=== PATIENT | female | born 1980 | race Caucasian/White ===

== ENCOUNTER 2020-12-06 10:05 | Outpatient (REF) | payer OTHER, SELFPAY ==
[2020-12-06 13:57] LABS: Hematocrit 43.7 % (37-47); Hemoglobin 14.9 g/dl (12.0-16.0); Mean Corpuscular HGB Conc 34.1 g/dl (31.0-35.0); Mean Corpuscular Hemoglobin 32.7 pg (27.0-33.0); Mean Corpuscular Volume 95.8 fL (80-98); Mean Platelet Volume 9.3 fL (9.4-12.3); Platelet Count 292 X10*3/uL (160-400); Red Blood Count 4.56 X10*6/uL (4.20-5.50); Red Cell Distribution Width 12.2 % (11.0-16.0); White Blood Count 5.9 X10*3/uL (4.8-10.8)
[2020-12-06 14:03] LABS: Glucose Urine UA NEG (NEG); Leukocyte Esterase Urine 1+ (NEG); Nitrite Urine NEG (NEG); PH 7.5 (5.0-8.0); Specific Gravity - Urine 1.015 (1.005-1.025); Urine Blood 1+ (NEG); Urine Ketones NEG (NEG); Urine Protein NEG (NEG-TRACE)
[2020-12-06 14:04] LABS: Appearance Urine CLOUDY; Color Urine YELLOW
[2020-12-06 14:11] LABS: Amorphous Sediment Urine 2+ /LPF; Bacteria Urine 1+ /LPF; RBC Urine 0 /HPF (0); Squamous Epithelial Cell Urine 1+ /LPF
[2020-12-06 14:48] LABS: Alanine Aminotransferase 14 U/L (0-31); Albumin Level 4.2 g/dL (3.5-5.0); Alkaline Phosphatase 56 U/L (39-117); Anion Gap 10 (12-20); Aspartate Amino Transferase 17 U/L (5-31); Bilirubin Direct 0.6 mg/dL (0.0-0.5); Bilirubin Total 1.7 mg/dL (0.0-1.0); Blood Urea Nitrogen 17 mg/dL (9-16); Calcium 8.9 mg/dL (8.4-10.2); Carbon Dioxide 29 mmol/L (22-29); Chloride 105 mmol/L (96-108); Cholesterol 187 mg/dL; Estimated Glomerular Filt Rate > 60; Glucose Random 79 mg/dL (60-115); HDL Cholesterol 73 mg/dL; LDL Cholesterol Calculated 94 mg/dl; Potassium 4.1 mmol/L (3.3-5.1); Sodium 140 mmol/L (135-145); Total Protein 7.1 g/dL (6.5-8.0); Triglycerides 103 mg/dL
[2020-12-06 15:02] LABS: Thyroid Stimulating Hormone 0.79 uIU/mL (0.32-4.0)
== END 2020-12-06 10:06 | disposition home or self-care (01) ==
LOC: HO.WFDLDS 10:05
PROVIDERS: Visit Provider Internal Medicine
DX: I10 Essential (primary) hypertension (principal)
CPT/HCPCS: 36415; 80048; 80061; 80076; 81001; 81003; 84443; 85027

== ENCOUNTER 2020-12-27 08:27 | Outpatient (REF) | payer OTHER, SELFPAY ==
[2020-12-27 09:47] LABS: Lactate Dehydrogenase 146 U/L (122-220)
[2020-12-27 10:53] LABS: Glucose Urine UA NEG (NEG); Leukocyte Esterase Urine NEG (NEG); Nitrite Urine NEG (NEG); Urine Blood 3+ (NEG); Urine Ketones NEG (NEG); Urine Protein TRACE MG/DL (NEG-TRACE)
[2020-12-27 10:55] LABS: Appearance Urine CLOUDY; Color Urine YELLOW
[2020-12-27 11:42] LABS: Amorphous Sediment Urine 1+ /LPF; Bacteria Urine 1+ /LPF; RBC Urine TNTC /HPF (0); Squamous Epithelial Cell Urine 1+ /LPF
[2020-12-29 14:01] LABS: Haptoglobin 45 mg/dL (43-212)
== END 2020-12-27 08:28 | disposition home or self-care (01) ==
LOC: HO.LAB 08:27
PROVIDERS: Internal Medicine; PCP Family Medicine; Visit Provider Family Medicine
DX: R17 Unspecified jaundice (principal)
CPT/HCPCS: 36415; 81001; 83010; 83615

== ENCOUNTER 2021-08-06 06:16 | Outpatient (REF) | payer OTHER, SELFPAY ==
[2021-08-06 06:24] LABS: MANUAL DIFF FLAG NO
[2021-08-06 07:28] LABS: Basophils Absolute Auto 0.1 X10*3/uL (0.0-0.2); Eosinophils Absolute Auto 0.5 X10*3/uL (0.0-0.4); Eosinophils Percent Auto 6.2 % (0-4); Hematocrit 43.3 % (37.0-47.0); Imm Gran Abs Auto 0.01 X10*3/uL (0.00-0.03); Imm Gran Pct Auto 0.1 % (0.0-0.4); Lymphocytes Absolute Auto 1.7 X10*3/uL (1.2-4.9); Lymphocytes Percent Auto 23.5 % (20-40); Mean Corpuscular HGB Conc 34.6 g/dl (31.0-35.0); Mean Corpuscular Hemoglobin 32.1 pg (27.0-33.0); Mean Corpuscular Volume 92.7 fL (80.0-98.0); Mean Platelet Volume 9.3 fL (9.4-12.3); Monocytes Absolute Auto 0.6 X10*3/uL (0.1-1.2); Monocytes Percent Auto 7.9 % (2-11); Neutrophils Absolute Auto 4.4 x10*3/uL (2.0-8.3); Neutrophils Percent Auto 61.3 % (45-73); Platelet Count 235 X10*3/uL (160-400); Red Blood Count 4.67 X10*6/uL (4.20-5.50); White Blood Count 7.2 X10*3/uL (4.8-10.8)
[2021-08-06 07:52] LABS: Alanine Aminotransferase 14 U/L (0-31); Albumin Level 4.1 g/dL (3.5-5.0); Alkaline Phosphatase 48 U/L (39-117); Anion Gap 10 (12-20); Aspartate Amino Transferase 16 U/L (5-31); Bilirubin Direct 0.5 mg/dL (0.0-0.5); Bilirubin Total 1.3 mg/dL (0.0-1.0); Blood Urea Nitrogen 15 mg/dL (9-16); Calcium 8.4 mg/dL (8.4-10.2); Carbon Dioxide 25 mmol/L (22-29); Chloride 105 mmol/L (96-108); Estimated Glomerular Filt Rate > 60; Glucose Fasting 84 mg/dL (60-99); Sodium 136 mmol/L (135-145)
[2021-08-06 08:27] LABS: Microalbum/Creatinine Ratio Ur 17.6 ug/mg cr
[2021-08-06 08:39] LABS: Appearance Urine CLEAR; Color Urine YELLOW; Glucose Urine UA 250 MG/DL (NEG); Leukocyte Esterase Urine 1+ (NEG); Nitrite Urine NEG (NEG); PH 7.5 (5.0-8.0); Urine Blood 2+ (NEG); Urine Ketones NEG (NEG); Urine Protein NEG (NEG-TRACE)
[2021-08-06 09:04] LABS: WBC Urine 0-2 /HPF (0-4)
[2021-08-06 09:07] LABS: Bacteria Urine TRACE /LPF; Squamous Epithelial Cell Urine TRACE /LPF
== END 2021-08-06 06:17 | disposition home or self-care (01) ==
LOC: HO.LAB 06:16
PROVIDERS: PCP Family Medicine; Visit Provider Family Medicine
DX: Z00.00 Encounter for general adult medical examination without abnormal findings (principal); R17 Unspecified jaundice; I10 Essential (primary) hypertension
CPT/HCPCS: 36415; 80053; 81001; 81003; 82043; 82248; 85025

== ENCOUNTER 2021-10-22 11:08 | Outpatient (REF) | payer OTHER, SELFPAY ==
--- NOTE | ~2021-10-22 | MM_ITS ---
EXAMINATION: MM SCREENING DIGITAL BREAST TOMOSYNTHESIS, BILATERAL CLINICAL INFORMATION: Screening. Asymptomatic. Age 41. No prior breast imaging. No known family history breast cancer. The lifetime risk of breast cancer based on the Tyrer-Cuzick Model is 9%. COMPARISON: None (current study represents initial baseline exam). TECHNIQUE: Digital breast tomosynthesis is performed in both the craniocaudal and mediolateral oblique views along with computer-aided detection (CAD). Synthesized 2D images are generated from the tomosynthesis. FINDINGS: There are scattered areas of fibroglandular density (ACR BI-RADS breast composition Category b). There are no significant masses, abnormal calcifications, or other abnormalities. The axilla and skin contours are unremarkable. MM/MM tomosynthesis screening BI IMPRESSION: No mammographic evidence of malignancy. ASSESSMENT: BI-RADS 1: Negative RECOMMENDATION: Routine annual mammography screening. This patient's information was entered into a reminder system with a target due date for their next mammogram.
== END 2021-10-22 11:09 | disposition home or self-care (01) ==
LOC: HO.MAMMO 11:08
PROVIDERS: Visit Provider Family Medicine
DX: Z12.31 Encounter for screening mammogram for malignant neoplasm of breast (principal)
CPT/HCPCS: 77063; 77067

== ENCOUNTER 2022-09-03 09:51 | Outpatient (REF) | payer OTHER, SELFPAY ==
[2022-09-03 09:58] LABS: MANUAL DIFF FLAG NO
[2022-09-03 10:51] LABS: Basophils Absolute Auto 0.1 X10*3/uL (0.0-0.2); Basophils Percent Auto 1.5 % (0-2); Eosinophils Absolute Auto 0.3 X10*3/uL (0.0-0.4); Eosinophils Percent Auto 5.5 % (0-4); Hematocrit 43.1 % (37.0-47.0); Hemoglobin 14.6 g/dl (12.0-16.0); Imm Gran Abs Auto 0.01 X10*3/uL (0.00-0.03); Imm Gran Pct Auto 0.2 % (0.0-0.4); Lymphocytes Absolute Auto 1.8 X10*3/uL (1.2-4.9); Lymphocytes Percent Auto 31.1 % (20-40); Mean Corpuscular HGB Conc 33.9 g/dl (31.0-35.0); Mean Corpuscular Hemoglobin 31.8 pg (27.0-33.0); Mean Corpuscular Volume 93.9 fL (80.0-98.0); Mean Platelet Volume 9.3 fL (9.4-12.3); Monocytes Absolute Auto 0.5 X10*3/uL (0.1-1.2); Monocytes Percent Auto 8.2 % (2-11); Neutrophils Absolute Auto 3.1 x10*3/uL (2.0-8.3); Neutrophils Percent Auto 53.5 % (45-73); Platelet Count 275 X10*3/uL (160-400); Red Blood Count 4.59 X10*6/uL (4.20-5.50); Red Cell Distribution Width 11.9 % (11.0-16.0); White Blood Count 5.9 X10*3/uL (4.8-10.8)
[2022-09-03 11:15] LABS: Alanine Aminotransferase 14 U/L (0-31); Alkaline Phosphatase 53 U/L (39-117); Anion Gap 11 (12-20); Aspartate Amino Transferase 17 U/L (5-31); Bilirubin Total 1.7 mg/dL (0.0-1.0); Blood Urea Nitrogen 14 mg/dL (9-16); Calcium 8.3 mg/dL (8.4-10.2); Carbon Dioxide 27 mmol/L (22-29); Chloride 105 mmol/L (96-108); Cholesterol 193 mg/dL; Estimated Glomerular Filt Rate > 60; Glucose Fasting 85 mg/dL (60-99); HDL Cholesterol 67 mg/dL; LDL Cholesterol Calculated 114 mg/dl; Sodium 139 mmol/L (135-145); Total Protein 6.8 g/dL (6.5-8.0); Triglycerides 62 mg/dL
[2022-09-03 11:26] LABS: TSH reflex Free T4 0.87 uIU/mL (0.32-4.0)
[2022-09-03 11:42] LABS: Appearance Urine Turbid; Color Urine Yellow; Glucose Urine UA Negative (Negative); Leukocyte Esterase Urine Large (3+) (Negative); Nitrite Urine Negative (Negative); PH 8.5 (5.0-9.0); Specific Gravity - Urine 1.015 (1.005-1.025); UMIC TRIGGER UA YES; Urine Blood Negative (Negative); Urine Ketones Negative (Negative); Urine Protein Negative (Neg-Trace)
[2022-09-03 11:45] LABS: Bacteria Urine 2+ (None Seen); Hyaline Casts Urine 0-2 /LPF (0-2); RBC Urine 0-2 /HPF (0-2); Squamous Epithelial Cell Urine >20 /HPF (0-2)
[2022-09-03 12:08] LABS: Creatinine Urine 106.24 mg/dL; Microalbumin Urine < 5.0 mg/L
== END 2022-09-03 09:52 | disposition home or self-care (01) ==
LOC: HO.LAB 09:51
PROVIDERS: PCP Family Medicine; Visit Provider Family Medicine
DX: Z00.00 Encounter for general adult medical examination without abnormal findings (principal); I10 Essential (primary) hypertension
CPT/HCPCS: 36415; 80053; 80061; 81001; 82043; 84443; 85025

== ENCOUNTER 2022-09-09 11:52 | Outpatient (REF) | payer OTHER, SELFPAY ==
[2022-09-09 14:31] LABS: Appearance Urine Cloudy; Color Urine Yellow; Glucose Urine UA Negative (Negative); Leukocyte Esterase Urine Large (3+) (Negative); Nitrite Urine Negative (Negative); UMIC TRIGGER UA YES; Urine Blood Trace (Negative); Urine Ketones Negative (Negative); Urine Protein Negative (Neg-Trace)
[2022-09-09 15:04] LABS: Bacteria Urine 2+ (None Seen); Hyaline Casts Urine 0-2 /LPF (0-2); WBC Urine 0-5 /HPF (0-5)
== END 2022-09-09 11:53 | disposition home or self-care (01) ==
LOC: HO.LAB 11:52
PROVIDERS: Visit Provider Family Medicine
DX: R82.71 Bacteriuria (principal)
CPT/HCPCS: 81001; 87086

== ENCOUNTER 2022-10-23 11:54 | Outpatient (REF) | payer OTHER, SELFPAY ==
--- NOTE | ~2022-10-23 | MM_ITS ---
EXAMINATION: MM SCREENING DIGITAL BREAST TOMOSYNTHESIS, BILATERAL CLINICAL INFORMATION: Screening. Asymptomatic. The lifetime risk of breast cancer based on the Tyrer-Cuzick Model is 8.9%. COMPARISON: Mammography: October 22, 2021 TECHNIQUE: Digital breast tomosynthesis is performed in both the craniocaudal and mediolateral oblique views along with computer-aided detection (CAD). Synthesized 2D images are generated from the tomosynthesis. FINDINGS: The breasts are heterogeneously dense, which may obscure small masses (ACR BI-RADS breast composition Category c). There are no significant masses, abnormal calcifications, or other abnormalities. MM/MM tomosynthesis screening BI IMPRESSION: No significant changes from prior exam. ASSESSMENT: BI-RADS 1: Negative RECOMMENDATION: Routine annual mammography screening. This patient's information was entered into a reminder system with a target due date for their next mammogram.
== END 2022-10-23 11:55 | disposition home or self-care (01) ==
LOC: HO.MAMMO 11:54
PROVIDERS: PCP Family Medicine; Visit Provider Family Medicine
DX: Z12.31 Encounter for screening mammogram for malignant neoplasm of breast (principal)
CPT/HCPCS: 77063; 77067

== ENCOUNTER 2023-01-07 16:10 | Outpatient (AMB) | payer OTHER, SELFPAY ==
--- NOTE | 2023-01-07 16:24 | MHC.PC.OV ---
Vital Signs 01/07/23 16:29 Height 5 ft 3 in Weight 123 lb 4 oz BMI 21.8 BP 144/78 H Blood Pressure Location Lt brachial Position Sitting Pulse 75 Pulse Source Pulse Oximeter Pulse Oximetry (%) 100 Oxygen Delivery Method Room Air Intake Visit Reasons: Follow-up hypertension Intake Note: Patient is here for hypertension today. Patient would like rash on hands to be looked at today, getting pretty bad. Allergies cat dander Allergy (Verified 01/07/23 16:31) runny nose, itchy eyes dog dander Allergy (Verified 01/07/23 16:31) runny nose, itchy eyes Seasonal Allergies Allergy (Verified 01/07/23 16:31) runny nose, sneezing, itchy eye Tobacco use date assessed: 09/09/22 Dental Screening Dental Screen Date: 01/07/23 Did you have a dental visit in the last 12 months?: Yes Did you have a dental problem in the last 6 months where you did not have access to dental care?: No Was dental information given to patient?: No HPI Follow-up hypertension HPI Details 42 y/o female presents to f/u hypertension. Blood pressure today is 144/78. She is on amlodipine 2.5mg daily. Pt has complaints of a rash today. She reports the eczema on her hands have been flaring up. She has been using betamethasone ointment which does help. [facility] Medical History Essential (primary) hypertension Surgical History S/P LASIK surgery of both eyes Family History (Updated 05/23/21 @ 10:03 by REZA Sainz) Father No problems noted. Mother No problems noted. Social History Household Members: Spouse and Children Housing: House Alcohol intake: never Patient Tobacco Use Status: Never used Tobacco e-Cigarette/Vaping Use: Never Used Second Hand Smoke Exposure: No service: No Current occupational status: employed Current occupational exposures/hazards: No Cognitive needs: No Hearing needs: No Vision needs: No Questionnaire Thrive Questionnaire Date Thrive assessed: 03/20/23 ARMOND-7 AMB Questionnaire ARMOND-7 Date ARMOND - 7 assessed: 09/09/22 Source: Developed by Drs. Jean Carlos Sotelo, Toya Giron, Javon Rubio and colleagues, with an educational harris from [employer]. Review of Systems Const Denies chills, Denies fatigue, Denies fever(s), Denies headache(s) and Denies weakness ENT Denies dizziness and Denies headache(s) Card Denies chest pain, Denies lightheadedness, Denies dyspnea and Denies other (Palpitations) Resp Denies cough, Denies dyspnea, Denies wheezing and Denies other ( shortness of breath) Musc Denies numbness and Denies tingling Neuro Denies dizziness, Denies headache(s), Denies numbness, Denies tingling, Denies paresthesias and Denies weakness Psych Denies anxiety and Denies depression Endo Denies fatigue Aller/Immun Denies wheezing Physical exam (Primary Care) Vital Signs: Last Vital Signs Pulse 75 01/07/23 16:29 BP 144/78 H 01/07/23 16:29 Pulse Ox 100 01/07/23 16:29 Oxygen Delivery Method Room Air 01/07/23 16:29 BMI result Body Mass Index 21.8 Tobacco/Smoking Status: Tobacco use Status Tobacco use date assessed 09/09/22 01/07/23 16:29 Patient Tobacco Use Status Never used Tobacco 01/07/23 16:29 e-Cigarette/Vaping Use Never Used 01/07/23 16:29 Thrive Assessment: Date of Thrive Assessment Date Thrive assessed 09/09/22 01/07/23 16:29 Const General: no acute distress and well developed Nutritional Appearance: well nourished Orientation/consciousness: patient oriented x3 [facility] Head: Yes normocephalic and Yes atraumatic Eyes General: appearance normal, both eyes and all related structures Pupils: Equal, round and reactive pupils present EOM: EOMs intact bilaterally Resp Effort & Inspection: normal respiratory effort Auscultation: clear to auscultation bilaterally Cardio Rate: regular rate Rhythm: regular rhythm Heart sounds: S1 normal heart sound present, S2 normal heart sound present, no gallops, no murmurs and no rubs Neuro General: patient oriented x3 and gait normal Cranial nerves: Yes Equal, round and reactive pupils present Psych Affect: normal affect Assessment and Plan Assessment & Plan (1) Essential (primary) hypertension: Code(s): I10 - Essential (primary) hypertension Plan: Blood pressure is still above goal. Will increase amlodipine from 2.5 mg daily to 5 mg daily Goal is less than 140/90 consistently. (2) Eczema: Code(s): L30.9 - Dermatitis, unspecified Plan: Moderately severe eczema on her hands. 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 Use a barrier moisturize and cream after washing. Will refill betamethasone which she can use twice a day and she may want to apply cotton gloves over the medication at bedtime. Medications: Changed From amlodipine 2.5 mg PO DAILY 90 days 90 tabs 3RF To amlodipine 5 mg PO DAILY 90 days 90 tabs 3RF Refilled betamethasone valerate 0.1% 1 appl topical BID 30 days PRN 60 grams 3RF skin irritation Coding Level of Care Code Est Pt Level 3 (10644) Diagnoses Essential (primary) hypertension I10 Eczema L30.9
[2023-01-07 16:29] VITALS: BP 144/78; PULSE 75; O2SAT 100; BMI 21.8
== END 2023-01-07 17:39 | disposition home or self-care (01) ==
PROVIDERS: Visit Provider Family Medicine
DX: I10 Essential (primary) hypertension (principal); L30.9 Dermatitis, unspecified
CPT/HCPCS: 99213

== ENCOUNTER 2023-05-07 10:31 | Outpatient (AMB) | payer BC, SELFPAY ==
[2023-05-07 10:40] VITALS: BP 122/72; PULSE 80; O2SAT 100; BMI 21.9
--- NOTE | 2023-05-07 10:40 | A.OFFPC_ITS ---
Vital Signs 05/07/23 10:40 Height 5 ft 3 in Weight 123 lb 6 oz BMI 21.9 BP 122/72 Blood Pressure Location Lt brachial Position Sitting Pulse 80 Pulse Source Pulse Oximeter Pulse Oximetry (%) 100 Oxygen Delivery Method Room Air Intake Visit Reasons: f/u hypertension Intake Note: Patient is here to follow up on hypertension. Allergies cat dander Allergy (Verified 05/07/23 10:45) runny nose, itchy eyes dog dander Allergy (Verified 05/07/23 10:45) runny nose, itchy eyes Seasonal Allergies Allergy (Verified 05/07/23 10:45) runny nose, sneezing, itchy eye Tobacco use date assessed: 05/07/23 HPI f/u hypertension HPI Details 43 y/o female presents to f/u hypertensi on. Had increased amlodipine last office visit. BP today 122/72. She is on amlodipine 5mg daily. [facility] Medical History Essential (primary) hypertension Surgical History S/P LASIK surgery of both eyes Family History (Updated 05/23/21 @ 10:03 by REZA Sainz) Father No problems noted. Mother No problems noted. Social History Household Members: Spouse and Children Housing: House Alcohol intake: never Patient Tobacco Use Status: Never used Tobacco e-Cigarette/Vaping Use: Never Used Second Hand Smoke Exposure: No service: No Current occupational status: employed Current occupational exposures/hazards: No Cognitive needs: No Hearing needs: No Vision needs: No Questionnaire Thrive Questionnaire Date Thrive assessed: 09/09/22 ARMOND-7 AMB Questionnaire ARMOND-7 Date ARMOND - 7 assessed: 09/09/22 Source: Developed by Drs. Jean Carlos Sotelo, Toya Giron, Javon Rubio and colleagues, with an educational harris from [employer]. Review of Systems Const Denies chills, Denies fatigue, Denies fever(s), Denies headache(s) and Denies weakness ENT Denies dizziness and Denies headache(s) Card Denies dyspnea Resp Denies cough, Denies dyspnea, Denies wheezing and Denies other (shortness of breath) Musc Denies numbness and Denies tingling Neuro Denies dizziness, Denies headache(s), Denies numbness, Denies tingling and Denies weakness Psych Denies anxiety and Denies depression Endo Denies fatigue Aller/Immun Denies wheezing Physical exam (Primary Care) Vital Signs: Last Vital Signs Pulse 80 05/07/23 10:40 BP 122/72 05/07/23 10:40 Pulse Ox 100 05/07/23 10:40 Oxygen Delivery Method Room Air 05/07/23 10:40 BMI result Body Mass Index 21.9 Tobacco/Smoking Status: Tobacco use Status Tobacco use date assessed 05/07/23 05/07/23 10:46 Patient Tobacco Use Status Never used Tobacco 05/07/23 10:46 e-Cigarette/Vaping Use Never Used 05/07/23 10:46 Thrive Assessment: Date of Thrive Assessment Date Thrive assessed 09/09/22 05/07/23 10:46 Const General: well developed; No acute distress Nutritional Appearance: well nourished Orientation/consciousness: patient oriented x3 [facility] Head: Yes normocephalic and Yes atraumatic Eyes General: appearance normal, both eyes and all related structures Pupils: Equal, round and reactive pupils present EOM: EOMs intact bilaterally Resp Effort & Inspection: normal respiratory effort Auscultation: clear to auscultation bilaterally Cardio Rate: regular rate Rhythm: regular rhythm Heart sounds: S1 normal heart sound present, S2 normal heart sound present, no gallops, no murmurs and no rubs Neuro General: patient oriented x3 and gait normal Cranial nerves: Yes Equal, round and reactive pupils present Psych Affect: normal affect Assessment and Plan Assessment & Plan (1) Essential (primary) hypertension: Code(s): I10 - Essential (primary) hypertension Plan: Blood?pressure?is?controlled.??Goal?is?less?than?140/90 Continue?current?medication Coding Level of Care Code Est Pt Level 3 (42045) Diagnoses Essential (primary) hypertension I10
== END 2023-05-07 11:09 | disposition home or self-care (01) ==
PROVIDERS: PCP Family Medicine; Visit Provider Family Medicine
DX: I10 Essential (primary) hypertension (principal)
CPT/HCPCS: 99213

== ENCOUNTER → 2023-07-15 14:36 | Outpatient (BNVA) | payer SELFPAY | PROVIDERS: PCP Family Medicine ==

== ENCOUNTER 2023-08-19 09:44 | Outpatient (REF) | payer BC, SELFPAY ==
[2023-08-19 17:16] LABS: Urine Cytology See Pathology rpt
== END 2023-08-19 09:45 | disposition home or self-care (01) ==
LOC: HO.LAB 09:44
PROVIDERS: PCP Family Medicine; Visit Provider Nurse Practitioner Family
DX: N39.0 Urinary tract infection, site not specified (principal); R82.71 Bacteriuria; R31.29 Other microscopic hematuria; R39.89 Other symptoms and signs involving the genitourinary system
CPT/HCPCS: 81003; 87086; 88112

== ENCOUNTER 2023-08-19 09:44 | Outpatient (AMB) | payer BC, SELFPAY ==
--- NOTE | 2023-08-19 10:02 | A.OFFVIS_ITS ---
Intake Intake Visit Reasons: microscopic hematuria Intake Note: New Patient presents for initial visit microscopic hematuria Urology Medications: none Blood Thinner: none Smoker: No [place] Required: No Accompanied by: Self / Same As Patient Allergies cat dander Allergy (Verified 08/19/23 10:44) runny nose, itchy eyes dog dander Allergy (Verified 08/19/23 10:44) runny nose, itchy eyes Seasonal Allergies Allergy (Verified 08/19/23 10:44) runny nose, sneezing, itchy eye Medication List - Last Reconciled 08/19/23 by SAÚL Shaffer- amlodipine 5 mg PO DAILY 90 days betamethasone valerate 0.1% 1 appl topical BID PRN 30 days HPI HPI Comments History of Present Illness Details Viridiana is a very pleasant 43-year-old female patient of Dr. Bolden. She has a past medical history of seasonal allergies and hypertension. She presents to the office today as a new patient for microscopic hematuria. In discussion with the patient today she reports having followed up with her PCP for her annual visit at which time microscopic hematuria was noted however she was on her menses therefore repeat urinalysis was ordered and performed and continued to show microscopic hematuria. She does discuss having workplace chemical exposure as she is a pharmacist and mixes chemotherapeutic agents. She does report compliance with PPE and mixes medications under a garcia. In office urinalysis results reviewed with the patient today 2+ microscopic hematuria and leukocytes. Discussed at length potential causes for microscopic hematuria at length. Discussed further microscopic hematuria workup at length. Discussed risks and benefits of surveillance monitoring verses further workup. When asked she does report noting new onset urinary/bladder pressure over the last few days otherwise she denies any bothersome urinary issues or concerns. She denies any previous smoking history. ? [facility] Medical History Essential (primary) hypertension Surgical History S/P LASIK surgery of both eyes Family History Father No problems noted. Mother No problems noted. Social History Household Members: Spouse and Children Housing: House Alcohol intake: never Patient Tobacco Use Status: Never used Tobacco e-Cigarette/Vaping Use: Never Used Second Hand Smoke Exposure: No service: No Current occupational status: employed Current occupational exposures/hazards: No Cognitive needs: No Hearing needs: No Vision needs: No Review of Systems Const Reports no additional complaints Eyes Reports no additional complaints ENT Reports no additional complaints Card Reports as per HPI Resp Reports no additional complaints GI Reports no additional complaints Reports as per HPI Musc Reports no additional complaints Neuro Reports no additional complaints Psych Reports no additional complaints Endo Reports no additional complaints Matt/Lymph Reports no additional complaints Aller/Immun Reports no additional complaints Physical Exam Const General: cooperative, healthy appearing, comfortable, no acute distress, well developed, alert and awake Nutritional Appearance: average body habitus Orientation/consciousness: patient oriented x3 Limitations: no limitations HEENT Head: Yes normal to inspection, Yes normocephalic and Yes atraumatic Ears: hearing grossly normal bilaterally Eyes General: appearance normal, both eyes and all related structures Neck Neck: Yes normal visual inspection and Yes trachea midline Chest Chest palpation & inspection: normal inspection of the chest Resp Effort & Inspection: normal respiratory effort and able to speak in complete sentences Cardio Rate: regular rate GI Inspection: Yes normal to inspection General: Yes no CVA tenderness Back/Spine/Pelvis Back: no CVA tenderness Skin General skin exam: no rashes or lesions noted Neuro General: patient oriented x3 Extrem General: Yes normal to inspection Psych Appearance: grossly normal and well kempt Mental Status: mental status grossly normal Speech and movement: Normal speech and movement present and Clear speech present Affect: normal affect Attitude: cooperative Thought process: Normal thought process present Thought content: Normal thought content present Insight: Good insight present (Psych) Judgement: Good judgement present (Psych) Results AMB Urinalysis, Automated UA Leukoctes 125 Keeley/uL Last Edit by Socorro Richter CMA on 08/19/23 10:16 UA Nitrite Negative Last Edit by Socorro Richter CMA on 08/19/23 10: 16 UA Urobilinogen 0.2 mg/dL Last Edit by Socorro Richter CMA on 4 10:16 UA Protein 0 mg/dL Last Edit by Socorro Richter CMA on 08/19/23 10:16 UA pH 6.0 Last Edit by Socorro Richter CMA on 08/19/23 10:16 UA Blood 80 Anthony/uL Last Edit by Socorro Richter CMA on 08/19/23 10:16 UA Specific [place] 1.025 Last Edit by Socorro Richter BLOCK MACHINE OPERATOR on 10:16 UA Ketone Negative Last Edit by Socorro Richter CMA on 08/19/23 10:1 6 UA Bilirubin 0 mg/dL Last Edit by Socorro Richter CMA on 08/19/23 10: 16 UA Glucose 0 mg/dL Last Edit by Socorro Richter [facility] on 08/19/23 10:16 Results Reviewed Results Reviewed: Laboratory Last Values Urine pH (Auto) 6.0 08/19/23 10:02 Specific [place] (Auto) 1.025 08/19/23 10:02 Urine Protein (Auto) 0 mg/dL 08/19/23 10:02 Glucose (UA)(Auto) 0 mg/dL 08/19/23 10:02 Urine Ketones (Auto) Negative 08/19/23 10:02 Urine Blood (Auto) 80 Anthony/uL 08/19/23 10:02 Urine Nitrite (Auto) Negative 08/19/23 10:02 Urine Bilirubin (Auto) 0 mg/dL 08/19/23 10:02 Urine Urobilinogen (Auto) 0.2 mg/dL 08/19/23 10:02 Leukocyte Esterase (Auto) 125 Keeley/uL 08/19/23 10:02 Assessment & Plan Assessment & Plan (1) Microscopic hematuria: Code(s): R31.29 - Other microscopic hematuria (2) Sensation of pressure in bladder area: Code(s): R39.89 - Other symptoms and signs involving the genitourinary system Plan In office urinalysis results reviewed with the patient today; as noted above; will send for urine cytology and urine culture. Discussed at length potential causes of microscopic hematuria. Discussed at length further workup with CT urogram as well as in office cystoscopy for further assessment evaluation; risks and benefits of further workup was discussed at length. Will continue with surveillance monitoring at this time per patient request. Discussed, educated, and stressed the importance of drinking plenty of water daily. Follow-up in 6 months; or sooner with any issues, concerns, and or questions. Orders: Orders Urine Cytology Today N39.0 - Urinary tract infection, site not specified, R82.71 - Bacteriuria AMB Urinalysis Automated Today R33.9 - Retention of urine, unspecified Urine Culture Today N39.0 - Urinary tract infection, site not specified Patient Instructions: The patient had an opportunity to ask questions regarding the treatment plan. All questions were answered. Physical exam, labs, and imaging were discussed and reviewed in detail. As well as risks, benefits, and discussion of treatment choices. No major barriers to understanding were identified. The patient expressed understanding and agreement with the above treatment plan. The patient was made aware they should contact our office by phone for worsening of their current condition, the appearance of new symptoms, or with any questions or concerns. Compliance is encouraged with any medications and follow up testing that is ordered. It is a privilege to be allowed the opportunity to participate in? your urological care.? Again, if you have any questions or concerns If you have any questions or concerns please do not hesitate to contact me. The office is [phone]. This note is constructed using voice recognition software. While every effort has been made to ensure accuracy streets and buildings decorator errors may have been included. Yours sincerely, RAMON Shaffer Coding Level of Care Code New Pt Level 3 (43306) Diagnoses Microscopic hematuria R31.29 Sensation of pressure in bladder area R39.89
== END 2023-08-19 10:38 | disposition home or self-care (01) ==
PROVIDERS: PCP Family Medicine; Referring Provider Family Medicine; Visit Provider Nurse Practitioner Family
DX: R31.29 Other microscopic hematuria (principal); R39.89 Other symptoms and signs involving the genitourinary system
CPT/HCPCS: 99203

== ENCOUNTER 2023-10-29 11:09 | Outpatient (REF) | payer BC, SELFPAY ==
--- NOTE | ~2023-10-29 | MM_ITS ---
EXAMINATION: MM SCREENING DIGITAL BREAST TOMOSYNTHESIS, BILATERAL CLINICAL INFORMATION: Screening. Asymptomatic. COMPARISON: Mammography: 10/23/2022, and 10/22/2021. TECHNIQUE: Digital breast tomosynthesis is performed in both the craniocaudal and mediolateral oblique views along with computer-aided detection (CAD). Synthesized 2D images are generated from the tomosynthesis. FINDINGS: The breasts are heterogeneously dense, which may obscure small masses (ACR BI-RADS breast composition Category c). There are no suspicious masses, suspicious grouped calcifications, or areas of architectural distortion in either breast. The parenchymal pattern is stable from prior exams. There are no skin or axillary abnormalities. MM/MM tomosynthesis screening BI IMPRESSION: No mammographic evidence of malignancy. ASSESSMENT: BI-RADS BI-RADS 1 - Negative RECOMMENDATION: Routine annual mammography screening. 1 year F/U This examination should not preclude the clinical evaluation of a suspicious palpable abnormality. This patient's information was entered into a reminder system with a target due date for their next mammogram.
== END 2023-10-29 11:10 | disposition home or self-care (01) ==
LOC: HO.MAMMO 11:09
PROVIDERS: PCP Family Medicine; Visit Provider Family Medicine
DX: Z12.31 Encounter for screening mammogram for malignant neoplasm of breast (principal)
CPT/HCPCS: 77063; 77067

== ENCOUNTER → 2023-10-29 11:30 | Outpatient (BNV) | payer BC, SELFPAY | PROVIDERS: PCP Family Medicine; Visit Provider Radiology Diagnostic Radiology | DX: Z12.31 Encounter for screening mammogram for malignant neoplasm of breast (principal) | CPT/HCPCS: 77063; 77067 ==

== ENCOUNTER 2023-12-02 15:32 | Outpatient (AMB) | payer BC, SELFPAY ==
[2023-12-02 15:38] VITALS: BP 128/74; PULSE 80; O2SAT 100; BMI 22.1
--- NOTE | 2023-12-02 15:38 | A.OFFPC_ITS ---
Vital Signs 12/02/23 15:38 Height 5 ft 3 in Weight 124 lb 8 oz BMI 22.1 BP 128/74 Blood Pressure Location Lt brachial Position Sitting Pulse 80 Pulse Source Pulse Oximeter Pulse Oximetry (%) 100 Oxygen Delivery Method Room Air Intake Visit Reasons: Medications Intake Note: Patient is here for follow up on hypertension. Patient would like refill on Betamethasone cream. Allergies cat dander Allergy (Verified 12/02/23 15:41) runny nose, itchy eyes dog dander Allergy (Verified 12/02/23 15:41) runny nose, itchy eyes Seasonal Allergies Allergy (Verified 12/02/23 15:41) runny nose, sneezing, itchy eye Medication List - Last Reconciled 12/02/23 by Juancarlos Bolden MD amlodipine 5 mg PO DAILY 90 days betamethasone valerate 0.1% 1 appl topical BID PRN 30 days Tobacco use date assessed: 12/02/23 Dental Screening Dental Screen Date: 01/07/23 Did you have a dental visit in the last 12 months?: Yes Did you have a dental problem in the last 6 months where you did not have access to dental care?: No Was dental information given to patient?: Patient has dentist HPI Medications HPI Details 43 y/o female presents to f/u meds. Blood pressure today 128/74. [facility] Medical History Essential (primary) hypertension Surgical History S/P LASIK surgery of both eyes Family History Father No problems noted. Mother No problems noted. Social History Household Members: Spouse and Children Housing: House Alcohol intake: never Patient Tobacco Use Status: Never used Tobacco e-Cigarette/Vaping Use: Never Used Second Hand Smoke Exposure: No service: No Current occupational status: employed Current occupational exposures/hazards: No Cognitive needs: No Hearing needs: No Vision needs: No Questionnaire Thrive Questionnaire Date Thrive assessed: 09/09/22 ARMOND-7 AMB Questionnaire ARMOND-7 Date ARMOND - 7 assessed: 09/09/22 Source: Developed by Drs. Jean Carlos Sotelo, Toya Giron, Javon Rubio and colleagues, with an educational harris from [employer]. Physical exam (Primary Care) Vital Signs: Last Vital Signs Pulse 80 12/02/23 15:38 BP 128/74 12/02/23 15:38 Pulse Ox 100 12/02/23 15:38 Oxygen Delivery Method Room Air 12/02/23 15:38 BMI result Body Mass Index 22.1 Tobacco/Smoking Status: Tobacco use Status Tobacco use date assessed 12/02/23 12/02/23 15:47 Patient Tobacco Use Status Never used Tobacco 12/02/23 15:40 e-Cigarette/Vaping Use Never Used 12/02/23 15:40 Thrive Assessment: Date of Thrive Assessment Date Thrive assessed 09/09/22 12/02/23 15:40 Assessment and Plan Assessment & Plan (1) Essential (primary) hypertension: Code(s): I10 - Essential (primary) hypertension Plan: Blood?pressure?is?well?controlled.??Goal?is?less?than?140/90 Continue?current?medication Orders: Orders Lipid Panel Today Z00.00 - Encounter for general adult medical examination without abnormal findings Microalbumin, Random (w Creat) Today I10 - Essential (primary) hypertension Comprehensive Mitchell. Panel Fast Today Z00.00 - Encounter for general adult medical examination without abnormal findings TSH reflex Free T4 Today Z00.00 - Encounter for general adult medical examination without abnormal findings UA and rflx microscopic Today Z00.00 - Encounter for general adult medical examination without abnormal findings Medications: Refilled betamethasone valerate 0.1% 1 appl topical BID 30 days PRN 60 grams 3RF skin irritation Coding Level of Care Code Est Pt Level 3 (46980) Diagnoses Essential (primary) hypertension I10
== END 2023-12-02 16:03 | disposition home or self-care (01) ==
PROVIDERS: PCP Family Medicine; Visit Provider Family Medicine
DX: I10 Essential (primary) hypertension (principal)
CPT/HCPCS: 99213

== ENCOUNTER 2024-02-25 09:00 | Outpatient (REF) | payer BC, SELFPAY ==
[2024-02-25 10:14] LABS: Alanine Aminotransferase 16 U/L (0-31); Albumin Level 4.3 g/dL (3.5-5.0); Alkaline Phosphatase 51 U/L (39-117); Anion Gap 10 (12-20); Aspartate Amino Transferase 18 U/L (5-31); Bilirubin Total 1.4 mg/dL (0.0-1.0); Blood Urea Nitrogen 13 mg/dL (9-16); Calcium 9.4 mg/dL (8.4-10.2); Carbon Dioxide 25 mmol/L (22-29); Chloride 108 mmol/L (96-108); Cholesterol 198 mg/dL (<200); Estimated Glomerular Filt Rate > 60; Glucose Fasting 92 mg/dL (60-99); HDL Cholesterol 74 mg/dL (>40); LDL Cholesterol Calculated 113 mg/dL (<100); Potassium 4.2 mmol/L (3.3-5.1); Sodium 139 mmol/L (135-145); Total Protein 7.6 g/dL (6.5-8.0); Triglycerides 59 mg/dL (<150)
[2024-02-25 10:34] LABS: Appearance Urine Clear; Color Urine Yellow; Glucose Urine UA Negative (Negative); Leukocyte Esterase Urine Large (3+) (Negative); Nitrite Urine Negative (Negative); PH 5.5 (5.0-9.0); Specific Gravity - Urine 1.015 (1.005-1.025); UMIC TRIGGER UA YES; Urine Blood Trace (Negative); Urine Ketones Negative (Negative); Urine Protein Negative (Neg-Trace)
[2024-02-25 10:38] LABS: Bacteria Urine 3+ (None Seen); Hyaline Casts Urine 0-2 /LPF (0-2); RBC Urine 0-2 /HPF (0-2); WBC Urine >50 /HPF (0-5)
[2024-02-25 11:57] LABS: Creatinine Urine 87.93 mg/dL; Microalbum/Creatinine Ratio Ur 6.8 ug/mg cr (<30)
== END 2024-02-25 09:01 | disposition home or self-care (01) ==
LOC: HO.LAB 09:00
PROVIDERS: PCP Family Medicine; Visit Provider Family Medicine
DX: Z00.00 Encounter for general adult medical examination without abnormal findings (principal); I10 Essential (primary) hypertension
CPT/HCPCS: 36415; 80053; 80061; 81001; 82043; 82570; 84443

== ENCOUNTER 2024-02-26 10:11 | Outpatient (AMB) | payer BC, SELFPAY ==
--- NOTE | 2024-02-26 10:27 | A.OFFPC_ITS ---
Vital Signs 02/26/24 10:45 02/26/24 11:11 Height 5 ft 2.68 in Weight 127 lb 4 oz BMI 22.8 BP 134/84 Blood Pressure Location Lt brachial Position Sitting Respiration 14 Pulse 102 H 68 Pulse Source Pulse Oximeter Pulse Oximetry (%) 98 Oxygen Delivery Method Room Air Intake Visit Reasons: [facility] from [facility] Intake Note: New patient visit. 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 Lab results. Credit Collection Associate Required: No Is last menstrual period known: No Allergies cat dander Allergy (Verified 02/26/24 10:33) runny nose, itchy eyes dog dander Allergy (Verified 02/26/24 10:33) runny nose, itchy eyes Seasonal Allergies Allergy (Verified 02/26/24 10:33) runny nose, sneezing, itchy eye Tobacco use date assessed: 12/02/23 Dental Screening Dental Screen Date: 01/07/23 Did you have a dental visit in the last 12 months?: Yes Did you have a dental problem in the last 6 months where you did not have access to dental care?: No Was dental information given to patient?: Patient has dentist HPI HPI Comments History of Present Illness Details This is a 44-year-old female with a past medical history of hypertension and microscopic hematuria presenting for a physical exam. She is new to my panel. 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 She has a 4-year-old pre adoptive son. She has microhematuria. It is consistent with her recent labs. She saw Urology in the past, but she did not move forward with the workup at that time. Now she is wondering if she should do this again. She saw her window glazier who told her she has a soft cervix which could cause some spotting between menses. She does not see visible spotting or visible blood in her urine. No abdominal pain or unexplained weight loss. Nonsmoker. Hypertension is treated with amlodipine. Home readings are under 130/80. She has chronically elevated bilirubin levels with normal LFTs. Denies jaundice or history of liver issues. No family history of liver disease. ROS: Constitutional: No unexplained weight loss, fever, chills, fatigue or night sweats. Eyes: No vision changes, blurry vision, double vision, eye pain, eye redness, eye discharge. ENT: No hearing loss, sneezing, congestion, runny nose or sore throat. Respiratory: No shortness of breath, cough or sputum production. Cardiovascular: No chest pain, chest pressure or chest discomfort. No palpitations or pedal edema. Gastrointestinal: No anorexia, nausea, vomiting or diarrhea. No abdominal pain or blood in stool. Genitourinary: No dysuria, hematuria, urinary frequency. Neurologic: No headache, dizziness, syncope, unilateral weakness, ataxia, numbness or tingling in the extremities. Musculoskeletal: No muscle pain, back pain, joint pain or swelling. Hematologic/Lymphatics: No bleeding or bruising. No painful lymph nodes. Skin: No rash or itching. Endocrine: No cold or heat intolerance. No polyuria or polydipsia. Psychiatric: No depression or anxiety. No SI/HI. Physical exam: Constitutional: Alert, in no distress. Head: Normocephalic. Eyes: Pupils are equal, round and reactive to light. Extraocular muscles intact. Ear, Nose and Throat: Canals clear. TMs normal. Normal nasal mucosa. No nasal discharge. No oral lesions. Neck: Supple, Full range of motion. No lymphadenopathy. No palpable thyroid masses. Respiratory: Clear to auscultation. Cardiovascular: S1 S2 regular. No murmurs. Gastrointestinal: Abdomen soft, non-tender, non-distended. Normal bowel sounds. No palpable masses. Genitourinary: No costovertebral angle tenderness. Neurologic: No focal neurological deficits. Symmetric patellar reflexes. Moves all extremities spontaneously. Sensation intact bilaterally. Skin: No rashes or lesions. Musculoskeletal: No gross deformities. Normal range of motion. Extremities: Warm and well perfused. No clubbing, cyanosis or edema. 3+ peripheral pulses bilaterally. Psychiatric: Normal mood and affect COUNTS INCLUDE 234 BEDS AT THE [facility] Medical History (Updated 02/26/24 @ 13:36 by JOSE Tavera) Routine physical examination Essential (primary) hypertension Surgical History S/P LASIK surgery of both eyes Family History Father No problems noted. Mother No problems noted. 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 1. Little interest or pleasure in doing things: not at all 2. Feeling down, depressed, or hopeless: not at all 3. Trouble falling or staying asleep, or sleeping too much: not at all 4. Feeling tired or having little energy: not at all 5. Poor appetite or overeating: not at all 6. Feeling bad about yourself - or that you are a failure or have let yourself or your family down: not at all 7. Trouble concentrating on things, such as reading the newspaper or watching television: not at all 8. Moving or speaking so slowly that other people could have noticed. Or the opposite - being so fidgety or restless that you have been moving around a lot more than usual: not at all 9. Thoughts that you would be better off or of hurting yourself in some way: not at all Total score: 0 Depression Screening Interpretation: Negative Depression Screening Done: Yes 71323 - PHQ-9 Billing: Yes Source: Developed by Drs. Jean Carlos Sotelo, Toya Giron, Javon Rubio and colleagues, with an educational harris from [employer]. Thrive Questionnaire Date Thrive assessed: 09/09/22 I am a: Patient What is your living situation today?: I have a steady place to live Within the past 12 months, did the food you bought not last and you didn't have the money to get more?: Never true Within the past 12 months, did you worry whether your food would run out before you got money to buy more?: Never true Do you have trouble paying for medicines?: No Do you have trouble getting transportation to medical appointments?: No Do you have trouble paying your heating and electricity bill?: No Do you have trouble taking care of your child, family member or friend?: No Do you have trouble with day-to-day activities such as bathing, preparing meals, shopping, managing finances, etc.?: No Are you currently unemployed and looking for a job?: No Are you interested in more education?: No Please select the resources that you would like help with: None Currently or been in a relationship where the following occur: No concerns reported THRIVE Score: 0 AUDIT C Alcohol Use Questionnaire (AUDIT-C) 1. How often do you have a drink containing alcohol?: Never 3. How often do you have six or more drinks on one occasion?: Never Total Score: 0 ARMOND-7 AMB Questionnaire ARMOND-7 Date ARMOND - 7 assessed: 02/26/24 Feeling nervous, anxious, or on edge: 1 = Several days Not being able to stop or control worryin = Not at all Worrying too much about different things: 0 = Not at all Trouble relaxin = Several days Being so restless that it is hard to sit still: 0 = Not at all Becoming easily annoyed or irritable: 0 = Not at all Feeling afraid as if something awful might happen: 0 = Not at all Total ARMOND-7 score (0-4 normal; 5-9 mild; 10-14 moderate; 15-21 severe): 2 Source: Developed by Drs. Jean Carlos Sotelo, Toya Giron, Javon Rubio and colleagues, with an educational harris from [employer]. ARMOND-7 Assessment Billing ARMOND-7 Assessment Tool: ARMOND-7 Assessment 49131 Physical exam (Primary Care) Vital Signs: Last Vital Signs Pulse 102 H 02/26/24 10:45 Resp 14 02/26/24 10:45 BP 134/84 02/26/24 10:45 Pulse Ox 98 02/26/24 10:45 Oxygen Delivery Method Room Air 02/26/24 10:45 BMI result Body Mass Index 22.8 Tobacco/Smoking Status: Tobacco use Status Tobacco use date assessed 12/02/23 02/26/24 10:28 Patient Tobacco Use Status Never used Tobacco 02/26/24 10:28 e-Cigarette/Vaping Use Never Used 02/26/24 10:28 Depression Screening Interpretation: Negative Thrive Assessment: Date of Thrive Assessment Date Thrive assessed 09/09/22 02/26/24 10:28 Currently or been in a relationship where the following occur: No concerns reported Assessment and Plan Assessment & Plan (1) Routine physical examination: Code(s): Z00.00 - Encounter for general adult medical examination without abnormal findings Plan: Patient is seen today for a routine physical. As part of this visit we reviewed the following issues, which are considered and essential part of preventative health in this age group: - Breast Cancer screening - Annual Media Senior Recruiter exam - Screening for colon cancer - due at age 46 years - Blood pressure screening - Cholesterol screening - Osteoporosis prevention including calcium/vitamin D intake, weight bearing exercise & smoking cessation - Nutritional and exercise counseling - Counseling of injury prevention including fire prevention, smoke alarms and seat belt usage - Screening for depression - Prevention of and/or testing for infectious diseases - Education about skin cancer - Recommendations about immunizations - Recommendation of an eye exam - Screening for substance abuse (2) Microscopic hematuria: Code(s): R31.29 - Other microscopic hematuria Plan: Repeat urinalysis with culture and refer back to urology for evaluation. (3) Essential (primary) hypertension: Code(s): I10 - Essential (primary) hypertension Plan: Continue amlodipine. Lifestyle modifications reviewed. (4) Elevated bilirubin: Code(s): R17 - Unspecified jaundice Plan: Possible Gilbert's. Proceed with reticulocyte count and CBC with manual differential. Discussed getting liver ultrasound once results are back. If all of this is normal we can make a presumptive diagnosis of Gilbert's. Plan Follow up in 6 months for HTN. Orders: Orders UA w Microscopic Today R31.29 - Other microscopic hematuria Complete Blood Count Man Dif Today R17 - Unspecified jaundice, R31.29 - Other microscopic hematuria Urine Culture Today R31.29 - Other microscopic hematuria Reticulocyte Count Today R17 - Unspecified jaundice, R31.29 - Other microscopic hematuria Referrals Urology Referral R31.29 - Other microscopic hematuria Medications: Refilled amlodipine 5 mg PO DAILY 90 days 90 tabs 3RF Coding Level of Care Code Est Pt Prev Care 40-64y(90237) Diagnoses Routine physical examination Z00.00 Microscopic hematuria R31.29 Essential (primary) hypertension I10 Elevated bilirubin R17 Additional Codes ARMOND-7 Assessment Billing - ARMOND-7 Assessment Tool: ARMOND-7 Assessment [id number] ([id number])
[2024-02-26 10:45] VITALS: BP 134/84; PULSE 102; RESP 14; O2SAT 98; BMI 22.8
[2024-02-26 11:11] VITALS: PULSE 68
== END 2024-02-26 11:15 | disposition home or self-care (01) ==
PROVIDERS: PCP Physician Assistant Medical; Visit Provider Physician Assistant Medical
DX: Z00.00 Encounter for general adult medical examination without abnormal findings (principal); R31.29 Other microscopic hematuria; I10 Essential (primary) hypertension; R17 Unspecified jaundice
CPT/HCPCS: 99396

== ENCOUNTER 2024-02-26 11:19 | Outpatient (REF) | payer BC, SELFPAY ==
[2024-02-26 14:50] LABS: Baso%MD 0.7 %; Eos%MD 5.7 %; Hematocrit 44.5 % (37.0-47.0); Hemoglobin 15.2 g/dl (12.0-16.0); IG%MD 0.3 %; Immature Retic Fraction 10.2 % (3.0-15.9); Lymph%MD 21.5 %; Mean Corpuscular HGB Conc 34.2 g/dl (31.0-35.0); Mean Corpuscular Hemoglobin 32.1 pg (27.0-33.0); Mean Corpuscular Volume 93.9 fL (80.0-98.0); Mean Platelet Volume 9.3 fL (9.4-12.3); Mono%MD 7.4 %; Neut%MD 64.4 %; Platelet Count 255 X10*3/uL (160-400); Red Blood Count 4.74 X10*6/uL (4.20-5.50); Red Cell Distribution Width 12.6 % (11.0-16.0); Retic HGB Equivalent 35.9 pg (30.0-35.0); Reticulocytes Absolute 0.093 X10*6/uL (0.026-0.095); White Blood Count 6.8 X10*3/uL (4.8-10.8)
[2024-02-26 14:53] LABS: Blood Urea Nitrogen 19 mg/dL (9-16); Estimated Glomerular Filt Rate > 60
[2024-02-26 14:58] LABS: Appearance Urine Clear; Color Urine Yellow; Glucose Urine UA Negative (Negative); Leukocyte Esterase Urine Trace (Negative); Nitrite Urine Negative (Negative); Specific Gravity - Urine 1.025 (1.005-1.025); UMIC TRIGGER UA YES; Urine Blood Negative (Negative); Urine Ketones Negative (Negative); Urine Protein Negative (Neg-Trace)
[2024-02-26 15:08] LABS: Bacteria Urine None Seen (None Seen); Hyaline Casts Urine 0-2 /LPF (0-2); RBC Urine 0-2 /HPF (0-2); Squamous Epithelial Cell Urine 0-2 /HPF (0-2); WBC Urine 0-5 /HPF (0-5)
[2024-02-26 19:35] LABS: Band Neutrophils Percent 4 % (3-5); Eosinophils Absolute Manual 0.5 X10*3/uL (0.0-0.4); Eosinophils Percent Manual 8 % (0-4); Lymphocytes Absolute Manual 1.8 X10*3/uL (1.2-4.9); Lymphocytes Percent Manual 26 % (20-40); Monocytes Absolute Manual 0.2 X10*3/uL (0.1-1.2); Monocytes Percent Manual 3 % (2-11); Neutrophils Absolute Manual 4.3 X10*3/uL (2.0-8.3); Neutrophils Percent Manual 59 % (45-73)
[2024-02-26 19:36] LABS: Platelet Estimate NORMAL (NORMAL); RBC Morphology NORMAL
[2024-02-26 20:45] LABS: Platelet Morphology Comment NORMAL
== END 2024-02-26 11:20 | disposition home or self-care (01) ==
LOC: HO.WFDLDS 11:19
PROVIDERS: Nurse Practitioner Family; Referring Provider Family Medicine; Visit Provider Physician Assistant Medical
DX: R31.29 Other microscopic hematuria (principal); R17 Unspecified jaundice
CPT/HCPCS: 36415; 81001; 82565; 84520; 85007; 85027; 85045; 87086

== ENCOUNTER 2024-04-13 15:45 | Outpatient (REF) | payer BC, SELFPAY ==
[2024-04-13 17:26] LABS: Urine Cytology See Pathology rpt
== END 2024-04-13 15:46 | disposition home or self-care (01) ==
LOC: HO.LNP 15:45
PROVIDERS: PCP Family Medicine; Visit Provider Nurse Practitioner Family
DX: R31.29 Other microscopic hematuria (principal)
CPT/HCPCS: 81003; 88112

== ENCOUNTER 2024-04-13 15:45 | Outpatient (AMB) | payer BC, SELFPAY ==
--- NOTE | 2024-04-13 15:46 | A.OFFVIS_ITS ---
Intake Visit Reasons: 6M f/u Intake Note: Patient presents today for follow up on: microscopic hematuria Urology Medications: none Blood Thinner: none Smoker: Never Financial Services Intern Required: No Accompanied by: Self / Same As Patient Allergies cat dander Allergy (Verified 04/13/24 16:27) runny nose, itchy eyes dog dander Allergy (Verified 04/13/24 16:27) runny nose, itchy eyes Seasonal Allergies Allergy (Verified 04/13/24 16:27) runny nose, sneezing, itchy eye Medication List - Last Reconciled 04/13/24 by SAÚL Shaffer- amlodipine 5 mg PO DAILY 90 days betamethasone valerate 0.1% 1 appl topical BID PRN 30 days multivitamin 1 tab PO DAILY HPI Comments Details: Viridiana is a very pleasant 44-year-old female patient of Dr. Bolden. She has a past medical history of seasonal allergies and hypertension. She presents to the office today for follow-up of her microscopic hematuria. Of note, patient was seen approximately 8 months ago as a new patient for microscopic hematuria at which time we discussed at length potential causes for microscopic hematuria as well as further workup to include CT urogram and in office cystoscopy however plan was to move forward with surveillance monitoring. She later called the office and discussed after thought of treatment options she did want to undergo further workup however she then decided not to. In office urinalysis results reviewed with the patient today. Microscopic hematuria again noted. She reports having followed up with information systems architect as she felt that microscopic hematuria was related to gynecological issues and had a vaginal ultrasound that noted anteverted cervix. 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 She does report compliance with PPE while mixing medications. Discussed at length potential causes for microscopic hematuria at length. Discussed further microscopic hematuria workup at length. Discussed risks and benefits of surveillance monitoring verses further workup. She otherwise denies any previous smoking history. She denies any bothersome urinary issues or concerns. She denies urinary urgency, urinary frequency, incontinence, nocturia, hematuria, dysuria, foul smelling urine, changes to urinary stream, flank pain, fever, and or chills. She is happy with her current voiding parameters. Urine cytology 08/16 Negative for high-grade urothelial carcinoma. [facility] Medical History Routine physical examination Essential (primary) hypertension Surgical History S/P LASIK surgery of both eyes Family History Father No problems noted. Mother No problems noted. 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) Cognitive needs: No Hearing needs: No Vision needs: No Review of Systems Const All systems reviewed & are unremarkable except as noted in HPI and below Physical Exam Const General: cooperative, healthy appearing, comfortable, no acute distress, well developed, alert and awake Nutritional Appearance: average body habitus Orientation/consciousness: patient oriented x3 Limitations: no limitations HEENT Head: Yes normal to inspection, Yes normocephalic and Yes atraumatic Ears: hearing grossly normal bilaterally Eyes General: appearance normal, both eyes and all related structures Neck Neck: Yes normal visual inspection and Yes trachea midline Chest Chest palpation & inspection: normal inspection of the chest Resp Effort & Inspection: normal respiratory effort and able to speak in complete sentences Cardio Rate: regular rate GI Inspection: Yes normal to inspection General: Yes no CVA tenderness Back/Spine/Pelvis Back: no CVA tenderness Skin General skin exam: no rashes or lesions noted Neuro General: patient oriented x3 Extrem General: Yes normal to inspection Psych Appearance: grossly normal and well kempt Mental Status: mental status grossly normal Speech and movement: Normal speech and movement present and Clear speech present Affect: normal affect Attitude: cooperative Thought process: Normal thought process present Thought content: Normal thought content present Insight: Fair insight present (Psych) Judgement: Fair judgement present (Psych) Results AMB Urinalysis, Automated UA Leukoctes 0 Keeley/uL Last Edit by Agralogicsraffy Precipiosergei on 04/13/24 16:34 UA Nitrite Last Edit by D-ÉG Thermosetsergei on 04/13/24 16:34 UA Urobilinogen 0.2 mg/dL Last Edit by D-ÉG Thermosetsergei on 04/13/24 16:34 UA Protein 15 mg/dL Last Edit by [employer] on 04/13/24 16:34 UA pH 5.5 Last Edit by [employer] on 04/13/24 16:34 UA Blood 80 Anthony/uL Last Edit by [employer] on 04/13/24 16:34 UA Specific Buhl 1.025 Last Edit by [employer] on 04/13/24 16:34 UA Ketone Last Edit by Chor[employer] on 04/13/24 16:34 UA Bilirubin 0 mg/dL Last Edit by Chor[employer] on 04/13/24 16:34 UA Glucose 0 mg/dL Last Edit by ChorP[employer] on 04/13/24 16:34 Results Reviewed Results Reviewed: Laboratory Last Values Urine pH (Auto) 5.5 04/13/24 16:01 Specific Buhl (Auto) 1.025 04/13/24 16:01 Urine Protein (Auto) 15 mg/dL 04/13/24 16:01 Glucose (UA)(Auto) 0 mg/dL 04/13/24 16:01 Urine Blood (Auto) 80 Anthony/uL 04/13/24 16:01 Urine Bilirubin (Auto) 0 mg/dL 04/13/24 16:01 Urine Urobilinogen (Auto) 0.2 mg/dL 04/13/24 16:01 Leukocyte Esterase (Auto) 0 Keeley/uL 04/13/24 16:01 Assessment & Plan Assessment & Plan (1) Microscopic hematuria: Code(s): R31.29 - Other microscopic hematuria Category: Medical Plan In office urinalysis results reviewed with the patient today; as noted above; will send for urine cytology. Previous urine cytology results reviewed with the patient today; as noted above. Will obtain CT urogram for further assessment evaluation. BUN and creatinine ordered for imaging. We discussed at length potential causes of microscopic hematuria as well as further workup; risks and benefits of these interventions were discussed. Will schedule for in office cystoscopy. Follow-up per doctor's orders; or sooner with any issues, concerns, and or questions. Orders: Orders Urine Cytology Today R31.29 - Other microscopic hematuria AMB Urinalysis Automated Today R31.29 - Other microscopic hematuria, Z13.9 - Encounter for screening, unspecified CT urogram Today R31.29 - Other microscopic hematuria Blood Urea Nitrogen Today R31.29 - Other microscopic hematuria Creatinine Today R31.29 - Other microscopic hematuria Patient Instructions: The patient had an opportunity to ask questions regarding the treatment plan. All questions were answered. Physical exam, labs, and imaging were discussed and reviewed in detail. As well as risks, benefits, and discussion of treatment choices. No major barriers to understanding were identified. The patient expressed understanding and agreement with the above treatment plan. The patient was made aware they should contact our office by phone for worsening of their current condition, the appearance of new symptoms, or with any questions or concerns. Compliance is encouraged with any medications and follow up testing that is ordered. It is a privilege to be allowed the opportunity to participate in? your urological care.? Again, if you have any questions or concerns If you have any questions or concerns please do not hesitate to contact me. The office is [phone]. This note is constructed using voice recognition software. While every effort has been made to ensure accuracy boiler house mechanic errors may have been included. Yours sincerely, RAMON Shaffer Coding Level of Care Code Est Pt Level 3 (80867) Diagnoses Microscopic hematuria R31.29
== END 2024-04-13 16:20 | disposition home or self-care (01) ==
PROVIDERS: PCP Family Medicine; Visit Provider Nurse Practitioner Family
DX: Z13.9 Encounter for screening, unspecified (principal); R31.29 Other microscopic hematuria
CPT/HCPCS: 99213

== ENCOUNTER 2024-05-27 14:24 | Outpatient (AMB) | payer BC, SELFPAY ==
--- NOTE | 2024-05-27 14:36 | A.OFFVIS_ITS ---
Intake Visit Reasons: Cysto Intake Note: Patient is Present for Cystoscopy Urology Med: None Antibiotic Allergy: None Blood Thinner:None Last Cytology: 04/14/2024 URO- G Disposable Cystoscope lot: [id number] exp: 10/01/2026 Bundling Machine Operator Required: No Accompanied by: Self / Same As Patient Allergies cat dander Allergy (Verified 05/27/24 15:22) runny nose, itchy eyes dog dander Allergy (Verified 05/27/24 15:22) runny nose, itchy eyes Seasonal Allergies Allergy (Verified 05/27/24 15:22) runny nose, sneezing, itchy eye HPI Comments Details: 05/27/24--Here for cysto 04/13/24--Viridiana is a very pleasant 44-year-old female patient of Dr. Bolden. She has a past medical history of seasonal allergies and hypertension. She presents to the office today for follow-up of her microscopic hematuria. Of note, patient was seen approximately 8 months ago as a new patient for microscopic hematuria at which time we discussed at length potential causes for microscopic hematuria as well as further workup to include CT urogram and in office cystoscopy however plan was to move forward with surveillance monitoring. She later called the office and discussed after thought of treatment options she did want to undergo further workup however she then decided not to. In office urinalysis results reviewed with the patient today. Microscopic hematuria again noted. She reports having followed up with truck manager as she felt that microscopic hematuria was related to gynecological issues and had a vaginal ultrasound that noted anteverted cervix. 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 She does report compliance with PPE while mixing medications. Discussed at length potential causes for microscopic hematuria at length. Discussed further microscopic hematuria workup at length. Discussed risks and benefits of surveillance monitoring verses further workup. She ot herwise denies any previous smoking history. She denies any bothersome urinary issues or concerns. She denies urinary urgency, urinary frequency, incontinence, nocturia, hematuria, dysuria, foul smelling urine, changes to urinary stream, flank pain, fever, and or chills. She is happy with her current voiding parameters. Urine cytology 08/16 Negative for high-grade urothelial carcinoma. [facility] Medical History Routine physical examination Essential (primary) hypertension Surgical History S/P LASIK surgery of both eyes Family History Father No problems noted. Mother No problems noted. Social History Household Members: Spouse and Children Housing: House Alcohol intake: never Patient Tobacco Use Status: Never used Tobacco e-Cigarette/Vaping Use: Never Used Second Hand Smoke Exposure: No service: No Current occupational status: employed Current occupation: pharmacist Current occupational exposures/hazards: Yes (Works with chemotherapy) Cognitive needs: No Hearing needs: No Vision needs: No Review of Systems Const All systems reviewed & are unremarkable except as noted in HPI and below Reports no additional complaints Eyes Reports no additional complaints ENT Reports no additional complaints Card Reports no additional complaints Resp Reports no additional complaints GI Reports no additional complaints Reports as per HPI Musc Reports no additional complaints Skin/Breast Reports system reviewed and no additional complaints, except as documented Neuro Reports no additional complaints Psych Reports no additional complaints Endo Reports no additional complaints Matt/Lymph Reports no additional complaints Aller/Immun Reports no additional complaints Office Procedures Cystoscopy Consent Discussed risk and benefit or proposed procedure with the patient. Information consent for procedure given to the patient. Discussed technical aspects, risks, benefits and alternatives in full. Addressed all of the patient's questions and concerns regarding the procedure. The patient demonstrated knowledge and understanding. They wish to proceed with this procedure. Preparation The patient was prepped in the usual manner. A senior hardware design engineer was present and in the room. Genitalia was prepped with betadine solution in a sterile manner. Lidocaine Jelly 2% was placed into the urethra and 16Fr flexible Olympus cystoscope was inserted into the meatus after adequate lubrication. DISPOSABLE SCOPE URO-G FLEXIBLE SCOPE Procedure code (CPT) selection complete Office Meds lidocaine HCl 2 % mucosal jelly in applicator Performing Provider: Lowell Reynolds MD [facility] Administered by: REZA Grigsby on 05/27/24 15:33 Dose Route Admin Location Dispensed Lot Number Expiration Date FORMERLY NAMED [facility] Strip Deburrer 10 mL intra-urethral 10 mL naproxen 500 mg tablet Performing Provider: Lowell Reynolds MD Performing Location[facility] Administered by: REZA Grigsby on 05/27/24 15:33 Dose Route Admin Location Dispensed Lot Number Expiration Date NDC Strip Deburrer 500 mg PO 1 tab ciprofloxacin HCl 500 mg tablet Performing Provider: Lowell Reynolds MD Performing Location: [facility] Administered by: REZA Grigsby on 05/27/24 15:33 Dose Route Admin Location Dispensed Lot Number Expiration Date NDC Strip Deburrer 500 mg PO 1 tab Results AMB Urinalysis, Automated UA Leukoctes 0 Keeley/uL Last Edit by REZA Grigsby on 05/27/24 15:35 UA Nitrite Negative Last Edit by Aaliyah Cadet A on 05/27/24 15:35 UA Urobilinogen 0.2 mg/dL Last Edit by Aaliyah aCdet Margaret on 05/27/24 15:3 5 UA Protein 0 mg/dL Last Edit by Aaliyah Cadet A on 05/27/24 15:35 UA pH 6.0 Last Edit by Aaliyah Cadet [facility] on 05/27/24 15:35 UA Blood 80 Anthony/uL Last Edit by Aaliyah Cadet [facility] on 05/27/24 15:35 UA Specific [place] 1.025 Last Edit by Aaliyah Cadet A on 05/27/24 15: 35 UA Ketone Negative Last Edit by Aaliyah Cadet Margaret on 05/27/24 15:35 UA Bilirubin 0 mg/dL Last Edit by Aaliyah Cadet A on 05/27/24 15:35 UA Glucose 0 mg/dL Last Edit by Aaliyah Cadet [facility] on 05/27/24 15:35 Results Reviewed Results Reviewed: Urine Cytology Collected: 04/13/24 Location: [facility] Received: 04/14/24 Diagnosis Urine: Negative for high-grade urothelial carcinoma. Comment: Examination of a monolayer preparation slide shows many benign squamous cells, scattered benign urothelial cells, scattered crystals, occasional acute inflammatory cells, and few red blood cells. Clinical History Other microscopic hematuria Material Received Urine Gross Description Received is 10 cc of cloudy yellow fluid from which a ThinPrep slide is prepared. Assessment & Plan Assessment & Plan Orders: Orders AMB Cystoscopy Today R31.29 - Other microscopic hematuria AMB Urinalysis Automated Today Z13.9 - Encounter for screening, unspecified Medications: New naproxen 500 mg PO ONCE 1 tab 0RF R31.29 - Other microscopic hematuria lidocaine HCl 2% 10 mL intra-urethral ONCE 10 mL 0RF R31.29 - Other microscopic hematuria ciprofloxacin HCl 500 mg PO ONCE 1 tab 0RF R31.29 - Other microscopic hematuria Coding
== END 2024-05-27 16:07 | disposition home or self-care (01) ==
PROVIDERS: PCP Family Medicine; Visit Provider Urology
DX: Z13.9 Encounter for screening, unspecified (principal); R31.29 Other microscopic hematuria

== ENCOUNTER → 2024-05-27 14:24 | Outpatient (BNVA) | payer BC, SELFPAY | PROVIDERS: PCP Family Medicine; Visit Provider Urology | DX: R31.29 Other microscopic hematuria (principal) | CPT/HCPCS: 52000; 81003 ==

== ENCOUNTER 2024-07-20 11:23 | Outpatient (REF) | payer BC, SELFPAY ==
--- NOTE | ~2024-07-20 | CT_ITS ---
CLINICAL HISTORY: R31.29 - Other microscopic hematuria CT abdomen and pelvis with and without contrast Comparison: None Findings: The lung bases are clear. No renal calculus noted on the noncontrast portion of the exam. No suspicious mass noted. A few very small low-density lesions are present likely cysts. These are too small to confidently characterize by CT. Delayed imaging fails to demonstrate adequate opacification of the left ureter. The right ureter is unremarkable. Several phleboliths are present within the pelvis. The liver, gallbladder, spleen, splenule, adrenal glands and pancreas are unremarkable. No bowel obstruction or free air. Normal appendix. Uterus and adnexa are within normal limits. No significant retroperitoneal or mesenteric adenopathy. Impression: No urinary calculus or suspicious lesion identified. The left ureter is poorly evaluated due to incomplete opacification. This document has been electronically signed by: Javed Burks MD on 07/20/2024 13:08:08
[2024-07-20] MEDS: iohexoL 350 MG/ML 100 ML INFUS..BTL IV (11:57)
--- OUTSIDE RECORDS SUMMARY | 2024-07-20 12:40 | XMS_ITS ---
Author Organization [email or web address] [facility] Address [address] [address] Care Team Providers Care Surtass Analyst Name Role Phone JULIANNE DURAN Primary Care Provider Unavailab Jessica Mckinnon Unavailable [phone] Allergies No Known Allergies Results Component Value Reference Range Notes Test, Urine Reviewed date:10/24/2023 03:55:25 PM Interpretation: Performing Lab: Notes/Report: Test, Urine Negative SURGICAL PATHOLOGY Reviewed date:10/29/2023 10:28:46 AM Interpretation: Performing Lab:Testing performed or reported by [facility], a Service of [facility], [address] [place] [address] Inder Winters MD, Film Or Videotape Editor [facility]# [id number] Notes/Report: Patient Name: KAROLINE HERNANDEZ Lab Patient : 1980 (Age: 43) Collection Date: 10/24/2023 Accession Date: 10/24/2023 Sign Out Date: 10/27/2023 Tissue Source: 1:EMB Final Diagnosis: Endometrium, biopsy: - Proliferative endometrium. Primary Pathologist:Olga Fernandez M.D. electronically signed out by: Olga Fernandez M.D. / LETY Clinical History: Abnormal uterine bleeding Gross Description: Labeled endometrial biopsy . Received in formalin is a 2.2 x 2.0 x 0.5 cm aggregate of red, mata tissue with translucent mucus. The specimen is entirely submitted. 1-multiple pieces, x 2. (EG)* As of August 30, 2023, the specimen processing and staining is performed at [facility], [address] [place] [address] (CLIA#[id number]). Its performance characteristics are determined by [facility]. Phone #: [phone], On-Call Pathologist: [id number] REASON FOR VISIT HSONO/EB ALL DONE/ AUB Medications Medication SIG (Take, Route, Frequency, Duration) Notes Start Date End Date Status amLODIPine Besylate 5 MG TAKE 1/2 TABLET BY MOUTH EVERY DAY Oral for 90 Active Encounters Encounter Location Date Provider Diagnosis [address] [place] [address] 10/24/2023 Jessica Colon Abnormal uterine and vaginal bleeding, unspecified N93.9 Assessments Encounter Date Diagnosis (ICD Code) Assessment Notes Treatment Notes Treatment Clinical Notes Section Notes 10/24/2023 Abnormal uterine and vaginal bleeding, unspecified (ICD-10 - N93.9) DISCUSSED FRIABLE LOOKING CERVIX THAT BLED ON TOUCH. HER INTERMITTENT SPOTTING BEFORE MENSES MAY BE COMING FROM FRIABLE CERVIX. DISCUSSED NORMAL HSONO FINDINGS. WILL CALL HER WITH EMB RESULTS. Plan Of Treatment Treatment Notes Assessment Notes Abnormal uterine and vaginal bleeding, unspecified DISCUSSED FRIABLE LOOKING CERVIX THAT BLED ON TOUCH. HER INTERMITTENT SPOTTING BEFORE MENSES MAY BE COMING FROM FRIABLE CERVIX. DISCUSSED NORMAL HSONO FINDINGS. WILL CALL HER WITH EMB RESULTS. Next Appt Details Follow Up: prn, Reason: Provider Name:Jessica carr, 09/24/2024 10:00:00 AM, [address] [place] [address], [address], [place], [address], Procedure Notes * Category Sub-Category Detail Notes Endometrial biopsy Test: NEGATIVE Indication: Dysfunctional uterin e bleeding (DUB) Consent: General procedure, i ndications, risks, benefits, alternative treatments, and expected outcomes have been discussed with this patient. She has had an opportunity to ask questions, and all questions have been answered by me. She verbalizes understanding and to the best of my knowledge I feel the patient has been adequately informed and consented. The consent form has been signed. Prep: The patient was plac ed in the dorsal lithotomy position and a pelvic examination performed with the results documented above. A speculum was inserted into the vagina and the cervix cleaned with an antiseptic solution Procedure: A speculum was place d in the vaginal vault. The cervix was visualized and cleansed with an aseptic solution. The cervix was grasped with a tenaculum. Gentle traction was used to align the cervix and uterine canal. A flexible endometrial biopsy instrument was then passed through the cervical canal into the uterine cavity without difficulty. The uterine cavity was sounded to 8 cm. An adequate specimen was obtained and submitted for pathological evaluation and hemostasis achieved. The instruments were removed from the vagina and the patient advised to report bleeding, fever, dizziness, or other symptoms. She tolerated the procedure well. She was discharged from the office in stable condition with follow-up instructions. Follow-up treatment will be determined when the results of the biopsy are available in approximately one week. Sonohysterogram procedure Cervix prepped w ith aseptic solutionUnable to advance catheter, Tenaculum required/used, Lining thick at 5.6 mm,Lining smooth, Progress Notes * BEAU HERNANDEZIDOB:1980 (43 yo F)Acc No.[id number]:10/24/2023 Patient:?PILYBAL KAROLINE Appointment Provider:?Jessica carr M.D. :1980???Age:43 Y???Sex:Female D ate:10/24/2023 Address:[address] [place] [address] [address], , [id number] Pcp:JULIANNE DURAN Subjective: * Chief Complaints: * ???HSONO/EB ALL DONE/ AUB * HPI: ???New/Follow-up Patient Consult:? PAT HAS NOTED SPOTTING FOR SEVERAL DAYS BEFORE MENSES, OFTEN LONG 7 DAYS, FOR SEVERAL MONTHS NOW.? SPOTTING CAN BE FROM 7 TO 14 DAYS BEFORE SHE HAS A PERIOD.? SHE IS HERE FOR HSONO AND EMB. WHEN SHE WAS WITH HER 3RD CHILD 3 4 YEARS AGO, SHE WAS NOTED TO HAVE A FRIABLE CERVIX THAT BLED ON TOUCH.? HER PAP TESTS HAVE BEEN NEGATIVE.? SHE HAS NO HX OF CERVICAL DYSPLASIA OR ABNORMAL PAP TEST. * ROS:?general:?no?chest pain.?no?palpitations.?no?headache.?no?cough.?no?shortness of breath.?no?fever.?no?unexplained weight loss.?no?nausea/vomiting.?no?change in bowel movements.?no blood in stool.?genitourinary complaints?yes,?SPOTTING BEFORE MENSES.?no?skin complaints.? * Medical History:? * Medications:?TakingamLODIPin e Besylate 5 MG Tablet TAKE 1/2 TABLET BY MOUTH EVERY DAY Oral Taking amLODIPine Besylate 5 MG Tablet TAKE 1/2 TABLET BY MOUTH EVERY DAY Oral * Allergies:?N.K.D.A.no[Allerg ies Verified] Objective: * Vitals:? Assessment: * Assessment: 1.?Abnormal uterine and vagi nal bleeding, unspecified - N93.9? Plan: * Treatment: ? Value Reference Range ? Test, Urine Negative Notes: DISCUSSED FRIABLE LOOKING CERVIX THAT BLED ON TOUCH. HER INTERMITTENT SPOTTING BEFORE MENSES MAY BE COMING FROM FRIABLE CERVIX. DISCUSSED NORMAL HSONO FINDINGS. WILL CALL HER WITH EMB RESULTS.?? * Procedures:?Sonohysterogram:?procedure?Cervix prepped with aseptic solution Unable to advance catheter, Tenaculum required/used, Lining thick at 5.6 mm, Lining smooth, .?Endometrial biopsy :? Test:?NEGATIVE.?Indication:?Dysfunctional uterine bleeding (DUB).?Consent:?General procedure, indications, risks, benefits, alternative treatments, and expected outcomes have been discussed with this patient. She has had an opportunity to ask questions, and all questions have been answered by me. She verbalizes understanding and to the best of my knowledge I feel the patient has been adequately informed and consented. The consent form has been signed..?Prep:?The patient was placed in the dorsal lithotomy position and a pelvic examination performed with the results documented above. A speculum was inserted into the vagina and the cervix cleaned with an antiseptic solution.?Procedure:?A speculum was placed in the vaginal vault. The cervix was visualized and cleansed with an aseptic solution. The cervix was grasped with a tenaculum. Gentle traction was used to align the cervix and uterine canal. A flexible endometrial biopsy instrument was then passed through the cervical canal into the uterine cavity without difficulty. The uterine cavity was sounded to 8 cm. An adequate specimen was obtained and submitted for pathological evaluation and hemostasis achieved. The instruments were removed from the vagina and the patient advised to report bleeding, fever, dizziness, or other symptoms. She tolerated the procedure well. She was discharged from the office in stable condition with follow-up instructions. Follow-up treatment will be determined when the results of the biopsy are available in approximately one week..?UNDER STERILE CONDITIONS, EMB WAS PERFORMED AND SPECIMEN WAS SENT TO PATHOLOGY.. THEN HSONO WAS PERFORMED.? THE ENDOMETRIUM WAS NOTED TO BE SLIGHTLY THICKENED BUT SMOOTH.? NO POLYPS WERE NOTED. ? * Procedure Codes:? * Follow Up:?prn * Images: Billing Information: * Visit Code:? * Procedure Codes:? * Sign off status: Completed true * Appointment Provider:?Jessica Colon M.D. Date:?10/24/2023 Generated for China mason/Zev/Nishantransmitting on:?07/20/2024 12:40 PM EST History and Physical Notes * HPI (History of Present Illness) Category Sub-Category Detail Notes Category Not es New/Follow-up Patient Consult PAT HAS NOTED SPOTTING FOR SEVERAL DAYS BEFORE MENSES, OFTEN LONG 7 DAYS, FOR SEVERAL MONTHS NOW. SPOTTING CAN BE FROM 7 TO 14 DAYS BEFORE SHE HAS A PERIOD. SHE IS HERE FOR HSONO AND EMB. WHEN SHE WAS WITH HER 3RD CHILD 3 4 YEARS AGO, SHE WAS NOTED TO HAVE A FRIABLE CERVIX THAT BLED ON TOUCH. HER PAP TESTS HAVE BEEN NEGATIVE. SHE HAS NO HX OF CERVICAL DYSPLASIA OR ABNORMAL PAP TEST.
--- OUTSIDE RECORDS SUMMARY | 2024-07-20 12:40 | XMS_ITS | Patient Health Record ---
Author Organization [employer] [facility] Address [address] [address] Care Team Providers Care Rubbish Collector Name Role Phone JULIANNE DURAN Primary Care Provider Unavailab Jessica Mckinnon Unavailable [phone] Allergies No Known Allergies Results Component Value Reference Range Notes SURGICAL PATHOLOGY Reviewed date:10/29/2023 10:28:46 AM Interpretation: Performing Lab:Testing performed or reported by [facility], a Service of [facility], [address] [place] [address] Inder Winters MD, Cable Respooler CLIA# [id number] Notes/Report: Patient Name: KAROLINE HERNANDEZ Lab Patient [...] specimen processing and staining is performed at [facility], [address] [place] [address] (CLIA#[id number]). Its performance characteristics are determined by [employer]. Phone #: [phone], On-Call Pathologist: [id number] Test, Urine Reviewed date:10/24/2023 03:55:25 PM Interpretation: Performing Lab: Notes/Report: Test, Urine Negative Reason For Referral No Information Medications Medication SIG (Take, Route, Frequency, Duration) Notes Start Date End Date Status amLODIPine Besylate 5 MG TAKE 1/2 TABLET BY MOUTH EVERY DAY Oral for 90 Active Social History Tobacco Use: Social History Observation Description Date Details (start date - stop date) Never Smoker NA - NA Tobacco Use/Smoking Question Answer Notes Are you a nonsmoker Alcohol Screen (Audit-C) Question Answer Notes Did you have a drink containing alcohol in the p ast year? No Points 0 Interpretation Negative Sexual History Question Answer Notes Had sex in the past 12 months (vaginal, oral, or anal)? Yes with Men only Prevention strategies discussed: Other Have you ever had a Sexually transmitted disease ? No Problems Problem Type SNOMED Code ICD Code Onset Dates Problem Status W/U Status Risk Notes Problem Abnormal vaginal bleeding (395348628) Other specified abnormal uterine and vaginal bleeding (N93.8) Active confirmed Problem Abnormal uterine bleeding ([id number] 00) Abnormal uterine and vaginal bleeding, unspecified (N93.9) Active confirmed Vital Signs Temperature 97.5 degrees Fahrenheit 09/19/2023 Blood pressure diastolic 92 mm Hg 09/19/2023 Height 63 in 09/19/2023 Blood pressure systolic 138 mm Hg 09/19/2023 Weight 125 lbs 09/19/2023 BMI 22.14 kg/m2 09/19/2023 Encounters Encounter Location Date Provider Diagnosis [facility] [place] [address] [place] [address] 10/17/2023 Jessica Colon [place] [address] [facility] [address] [place] [address] 09/19/2023 Jessica Colon Encounter for gynecological examination (general) (routine) without abnormal findings Z01.419 ; Encounter for screening mammogram for malignant neoplasm of breast Z12.31 ; Other specified abnormal uterine and vaginal bleeding N93.8 and Hematuria, unspecified R31.9 [facility] [address] [facility] [address] [place] [address] 10/24/2023 Jessica Colon Abnormal uterine and vaginal [...] FINDINGS. WILL CALL HER WITH EMB RESULTS. 09/19/2023 Encounter for screening mammogram for malignant neoplasm of breast (ICD-10 - Z12.31) REGULAR MAMMOGRAMS AND SBE'S WERE RECOMMENDED. 09/19/2023 Encounter for gynecological examination (general) (routine) without abnormal findings (ICD-10 - Z01.419) NO PAP TEST, DUE IN 2025. 09/19/2023 Other specified abnormal uterine and vaginal bleeding (ICD-10 - N93.8) DISCUSSED ABNORMAL UTERINE BLEEDING AND NEED FOR HSONO AND POSSIBLE EMB. DISCUSSED THESE PROCEDURES AND PAT AGREED TO PROCEED. HSONO AND EMB WILL BE SCHEDULED. IBUPROFEN 09/19/2023 Hematuria, unspecified (ICD-10 - R31.9) DISCUSSED COMMON CAUSES OF HEMATURIA. BEFORE SHE SUBMITS TO THESE TESTS, MAKE SURE BLEEDING IS NOT UTERINE IN ORIGIN. IF HSONO IS NEGATIVE, WILL PLACE THE PAT ON OCP'S TEMPORARILY TO STOP SPOTTING AND SEE IF HEMATURIA PERSISTS. Plan Of Treatment Pending Test Test Name Order Date Urinalysis 05/13/2019 Urinalysis 06/14/2021 Urinalysis 09/19/2023 COMPLETE URINALYSIS 09/16/2022 THIN PREP,HPV,JAH IF HPV+ (>29YR)(DIAG) 09/13/2022 URINE CULTURE 09/16/2022 MM Digital Mammo Screening 09/19/2023 MM Digital Mammo Screening 06/14/2021 MM Digital Mammo Screening 09/13/2022 MM Digital Mammo Screening 05/24/2020 Next Appt Details Provider Name:Jessica carr, 09/24/2024 10:00:00 AM, [address], [address], [place], [address], Insurance Providers Payer Name Payer Address Payer Phone Subscriber Number Group Number Insured Name Patient Relationship to Insured Coverage Start Date Coverage End Date [employer] [place] [address] [place] [address] [id number] KAROLINE HERNANDEZ Self - patient is the insured Medical (General) History Medical History History ICD Code Other microscopic hematuria R31.29 Other specified abnormal uterine and vag inal bleeding N93.8 Surgical History Surgery Date(Month/Year) Hospitalization History Reason Date(Month/Year) 3 Vaginal Deliveries
--- OUTSIDE RECORDS SUMMARY | 2024-07-20 12:40 | XMS_ITS ---
Author Organization [employer] Address [address] [facility] [address] [place] [address] Care Team Providers Care Mastercam Programmer Name Role Phone JULIANNE DURAN Primary Care Provider Unavailab Jessica Mckinnon Unavailable [phone] REASON FOR VISIT AUB Encounters Encounter Location Date Provider Diagnosis [facility] [address] [place] [address] [address] [place] [address] 10/17/2023 Jessica Colon Plan Of Treatment Next Appt Details Provider Name:Jessica carr, 09/24/2024 10:00:00 AM, [address] [facility], [address], [place], [address], Progress Notes * BEAU HERNANDEZIDOB:1980 (44 yo F)Acc No.[id number]:10/17/2023 PROGRESS NOTES Patient:?KAROLINE HERNANDEZ Appointment Provider:?Jessica carr M.D. :1980???Age:43 Y???Sex:Female D ate:10/17/2023 Address:[facility] [address], [id number] Pcp:JULIANNE DURAN Subjective: * Chief Complaints: * ???1. AUB. * Medical History:? Objective: * Vitals:? Assessment: Plan: * Treatment: * Images: Billing Information: * Visit Code:? * Procedure Codes:? * Electronic signature of Conor Colon MD on 07/20/2024 at 12:39 PM EST Sign off status: Pending * Appointment Provider:?Jessica Colon M.D. Date:?10/17/2023 Generated for China mason/Zev/Dashawn on:?07/20/2024 12:39 PM EST
--- OUTSIDE RECORDS SUMMARY | 2024-07-20 12:40 | XMS_ITS ---
Author Organization [facility] [employer] Address [address] [facility] [address] [place] [address] Care Team Providers Care Emergency Room Technician Name Role Phone JULIANNE DURAN Primary Care Provider Jessica Rm Unavailable [phone] Allergies No Known Allergies Results Component Value Reference Range Notes Test, Urine Reviewed date:10/17/2023 01:15:37 PM Interpretation: Performing Lab: Notes/Report: Test, Urine Negative REASON FOR VISIT HSONO/EB/ AUB Medications Medication SIG (Take, Route, Frequency, Duration) Notes Start Date End Date Status amLODIPine Besylate 5 MG TAKE 1/2 TABLET BY MOUTH EVERY DAY Oral for 90 Active Encounters Encounter Location Date Provider Diagnosis [facility] [address] [address] 10/17/2023 Jessica Colon Other specified abnormal uterine and vaginal bleeding N93.8 Assessments Encounter Date Diagnosis (ICD Code) Assessment Notes Treatment Notes Treatment Clinical Notes Section Notes 10/17/2023 Other specified abnormal uterine and vaginal bleeding (ICD-10 - N93.8) Plan Of Treatment Next Appt Details Provider Name:Jessica carr, 09/24/2024 10:00:00 AM, [address] [place] [address], [facility] [address], [place], [address], Progress Notes * BEAU HERNANDEZIDOB:1980 (44 yo F)Acc No.[id number]:10/17/2023 Patient:?KAROLINE HERNANDEZ Appointment Provider:?Jessica carr M.D. :1980???Age:43 Y???Sex:Female D ate:10/17/2023 Address:[address] [place] [address] ARIA Aguilar, , [place] Pcp:JULIANNE DURAN Subjective: * Chief Complaints: * ???1. HSONO/EB/ AUB. * HPI: ???New/Follow-up Patient Consult:? KITA HAS HAD SPOTTING FOR MANY DAYS PRIOR TO HER MENSES AND IS SCHEDULED FOR HSONO TODAY BUT SHE IS PRESENTLY MENSTRUATING.? WE ARE POSTPONING HER PROCEDURE.? SHE AGREED TO RETURN IN 2 WEEKS. * Medical History:?Other micro scopic hematuria, Other specified abnormal uterine and vaginal bleeding. * Medications:?Taking amLODIPi ne Besylate 5 MG Tablet TAKE 1/2 TABLET BY MOUTH EVERY DAY Oral , Medication List reviewed and reconciled with the patient * Allergies:?N.K.D.A. Objective: * Vitals:? Assessment: * Assessment: 1.?Other specified abnormal uterine and vaginal bleeding - N93.8??? Plan: * Treatment: ? Value Reference Range ? Test, Urine Negative * Images: Billing Information: * Visit Code:? * Procedure Codes:? * Electronic signature of Conor Colon MD on 07/20/2024 at 12:40 PM EST Sign off status: Pending * Appointment Provider:?Jessica Colon M.D. Date:?10/17/2023 Generated for [place] mason/Zev/eTjensmitting on:?07/20/2024 12:40 PM EST History and Physical [...]
== END 2024-07-20 11:24 | disposition home or self-care (01) ==
LOC: HO.CT 11:23
PROVIDERS: PCP Family Medicine; Visit Provider Nurse Practitioner Family
DX: R31.29 Other microscopic hematuria (principal)
CPT/HCPCS: 74178; Q9967

== ENCOUNTER → 2024-07-20 11:25 | Outpatient (BNV) | payer BC, SELFPAY | PROVIDERS: PCP Family Medicine; Visit Provider Radiology Vascular & Interventional Radiology | DX: R31.29 Other microscopic hematuria (principal) | CPT/HCPCS: 74178 ==

== ENCOUNTER 2024-09-13 14:47 | Outpatient (AMB) | payer BC, SELFPAY ==
--- NOTE | 2024-09-13 14:55 | MHC.PC.OV ---
Vital Signs 09/13/24 14:59 09/13/24 15:40 Height 5 ft 3 in Weight 127 lb 6 oz BMI 22.6 BP 147/88 H 142/84 H Blood Pressure Location Lt brachial Position Sitting Respiration 13 Pulse 77 Pulse Source Pulse Oximeter Temp 97.3 F Temp Source Temporal Artery Scan Pulse Oximetry (%) 98 Oxygen Delivery Method Room Air Intake Visit Reasons: Hypertension Intake Note: follow up on hypertension Non Garment Sewing Machine Operator Required: No Allergies cat dander Allergy (Verified 09/13/24 14:55) runny nose, itchy eyes dog dander Allergy (Verified 09/13/24 14:55) runny nose, itchy eyes Seasonal Allergies Allergy (Verified 09/13/24 14:55) runny nose, sneezing, itchy eye Tobacco use date assessed: 09/13/24 Dental Screening Dental Screen Date: 09/13/24 Did you have a dental visit in the last 12 months?: Yes Did you have a dental problem in the last 6 months where you did not have access to dental care?: No Was dental information given to patient?: Patient has dentist HPI HPI Comments History of Present Illness Details This is a 44-year-old female with a past medical history of hypertension and microscopic hematuria presenting for he follow up. 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 She has a 4-year-old pre adoptive son. The DCF trial was delayed, and the biological mother who agreed to an open adoption changed her mind. The trial is now set for November this year. She saw Urology for workup of microhematuria. She had a negative cystoscopy. She had a urogram CT which demonstrated no masses or stones. She has a follow up scheduled with Urology. Hypertension is treated with amlodipine. Generally when she checks her blood pressure at home it is under 130/80. She gets anxious coming to the appointments. Today her blood pressure is 147/88 initially, and it decreased to 142/84. She has 1 cup of caffeinated green tea in the morning. She is a nonsmoker. That outside of the patient's right elbow has been hurting for a couple of weeks. She was trying to exercise more and doing some weights at the gym. There was no trauma, swelling, bruising or redness. The pain is getting better. It is mild. She is still able to do ADLs. No numbness or tingling in the extremity. ROS: Constitutional: No fevers, chills or night sweats Eyes: No vision changes, blurry vision, double vision Respiratory: No shortness of breath Cardiovascular: No chest pain, chest pressure or chest discomfort. No palpitations or pedal edema. Genitourinary: No dysuria, hematuria, urinary frequency. Neurologic: No headache, dizziness, syncope Psychiatric: No depression or panic attacks. Physical exam: Constitutional: Alert, in no distress. Neck: Supple, Full range of motion. No lymphadenopathy. Respiratory: Clear to auscultation. Cardiovascular: S1 S2 regular. No murmurs. Musculoskeletal: Tender over the right lateral epicondyle. No edema, ecchymosis or erythema. Pain is reproduced when she flexes her elbow, and she has full range of motion. Neurologic: No focal neurological deficits. Extremities: Warm and well perfused. No clubbing, cyanosis or edema. Psychiatric: Normal mood and affect [facility] Medical History (Updated 09/13/24 @ 15:45 by JOSE Tavera) Right lateral epicondylitis Essential (primary) hypertension Surgical History S/P LASIK surgery of both eyes Family History Father No problems noted. Mother No problems noted. 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 1. Little interest or pleasure in doing things: not at all 2. Feeling down, depressed, or hopeless: not at all 3. Trouble falling or staying asleep, or sleeping too much: not at all 4. Feeling tired or having little energy: not at all 5. Poor appetite or overeating: not at all 6. Feeling bad about yourself - or that you are a failure or have let yourself or your family down: not at all 7. Trouble concentrating on things, such as reading the newspaper or watching television: not at all 8. Moving or speaking so slowly that other people could have noticed. Or the opposite - being so fidgety or restless that you have been moving around a lot more than usual: not at all 9. Thoughts that you would be better off or of hurting yourself in some way: not at all Total score: 0 Depression Screening Interpretation: Negative Depression Screening Done: Yes 00580 - PHQ-9 Billing: Yes Source: Developed by Drs. Jean Carlos Sotelo, Toya Giron, Javon Rubio and colleagues, with an educational harris from [employer]. Thrive Questionnaire Date Thrive assessed: 09/13/24 I am a: Patient What is your living situation today?: I have a steady place to live Within the past 12 months, did the food you bought not last and you didn't have the money to get more?: Never true Within the past 12 months, did you worry whether your food would run out before you got money to buy more?: Never true Do you have trouble paying for medicines?: No Do you have trouble getting transportation to medical appointments?: No Do you have trouble paying your heating and electricity bill?: No Do you have trouble taking care of your child, family member or friend?: No Do you have trouble with day-to-day activities such as bathing, preparing meals, shopping, managing finances, etc.?: No Are you currently unemployed and looking for a job?: No Are you interested in more education?: No Please select the resources that you would like help with: None Currently or been in a relationship where the following occur: No concerns reported THRIVE Score: 0 AUDIT C Alcohol Use Questionnaire (AUDIT-C) 1. How often do you have a drink containing alcohol?: Never Total Score: 0 ARMOND-7 AMB Questionnaire ARMOND-7 Date ARMOND - 7 assessed: 09/13/24 Feeling nervous, anxious, or on edge: 0 = Not at all Not being able to stop or control worryin = Not at all Worrying too much about different things: 0 = Not at all Trouble relaxin = Not at all Being so restless that it is hard to sit still: 0 = Not at all Becoming easily annoyed or irritable: 0 = Not at all Feeling afraid as if something awful might happen: 0 = Not at all Total ARMOND-7 score (0-4 normal; 5-9 mild; 10-14 moderate; 15-21 severe): 0 Source: Developed by Drs. Jean Carlos Sotelo, Toya Giron, Javon Ruboi and colleagues, with an educational harris from [employer]. ARMOND-7 Assessment Billing ARMOND-7 Assessment Tool: ARMOND-7 Assessment 95269 Physical exam (Primary Care) Vital Signs: Last Vital Signs Temp 97.3 F 09/13/24 14:59 Pulse 77 09/13/24 14:59 Resp 13 09/13/24 14:59 BP 147/88 H 09/13/24 14:59 Pulse Ox 98 09/13/24 14:59 Oxygen Delivery Method Room Air 09/13/24 14:59 BMI result Body Mass Index 22.6 Tobacco/Smoking Status: Tobacco use Status Tobacco use date assessed 09/13/24 09/13/24 14:58 Patient Tobacco Use Status Never used Tobacco 09/13/24 14:58 e-Cigarette/Vaping Use Never Used 09/13/24 14:58 PHQ-9: PHQ-9 Score PHQ-9: Total score 0 09/13/24 14:58 Depression Screening Interpretation: Negative Thrive Assessment: Date of Thrive Assessment Date Thrive assessed 09/13/24 09/13/24 14:58 Currently or been in a relationship where the following occur: No concerns reported Coding Level of Care Code Est Pt Level 4 (68611) Complex EM visit Add On G2211 Diagnoses Right lateral epicondylitis M77.11 Essential (primary) hypertension I10 Microscopic hematuria R31.29 Additional Codes ARMOND-7 Assessment Billing - ARMOND-7 Assessment Tool: ARMOND-7 Assessment 47703 ([id number]) PHQ-9 - 24005 - PHQ-9 Billing: Yes ([id number]) Assessment & Plan Assessment & Plan (1) Right lateral epicondylitis: Code(s): M77.11 - Lateral epicondylitis, right elbow Category: Medical Plan: Conservative management including avoiding repetitive activities, icing and using topical diclofenac as needed for pain reviewed. Symptoms have been improving. If they persist or worsen she will contact the office. (2) Essential (primary) hypertension: Code(s): I10 - Essential (primary) hypertension Category: Medical Plan: Suspect she has a component of office hypertension. She has not checked readings at home recently so she will do this again in send them to me over the patient portal. We will increase her medication if her blood pressure is not well-controlled. Recommended avoidance of sodium and caffeine. She is exercising regularly. (3) Microscopic hematuria: Code(s): R31.29 - Other microscopic hematuria Category: Medical Plan: Patient will follow up with Urology as planned. Workup thus far negative for malignancy. Plan Follow up in 6 months for a physical exam. Medications: New diclofenac sodium 1% (Arthritis Pain (diclofenac)) apply to right elbow up to four times daily as needed for pain 2 grams topical QID 100 grams 0RF
[2024-09-13 14:59] VITALS: BP 147/88; PULSE 77; RESP 13; TEMP 36.3; O2SAT 98; BMI 22.6
[2024-09-13 15:40] VITALS: BP 142/84
--- OUTSIDE RECORDS SUMMARY | 2024-09-13 17:39 | XMS_ITS | Patient Health Record ---
Author Organization [employer] [facility] Address [address] [address] Care Team Providers Care Chemical Manager Name Role Phone JULIANNE DURAN Primary Care Provider Unavailab Jessica Mckinnon Unavailable [phone] Allergies No Known Allergies Results Component Value Reference Range Notes SURGICAL PATHOLOGY Reviewed date:10/29/2023 10:28:46 AM Interpretation: Performing Lab:Testing performed or reported by [facility], a Service of [facility], [address] [place] [address] Inder Winters MD, [employer] CLIA# [id number] Notes/Report: Patient Name: KAROLINE HERNANDEZ Lab Patient [...] specimen processing and staining is performed at [facility], [address] [place] [address] (CLIA#[id number]). Its performance characteristics are determined by [employer]. Phone #: [phone], On-Call Pathologist: [id number] Test, Urine Reviewed date:10/24/2023 03:55:25 PM Interpretation: [...] Status Risk Notes Problem Abnormal vaginal bleeding (123421929) Other specified abnormal uterine and vaginal bleeding (N93.8) Active confirmed Problem Abnormal uterine bleeding ([id number] 00) Abnormal uterine and vaginal bleeding, unspecified (N93.9) Active confirmed Vital Signs Temperature 97.5 degrees Fahrenheit 09/19/2023 Blood pressure diastolic 92 mm Hg 09/19/2023 Height 63 in 09/19/2023 Blood pressure systolic 138 mm Hg 09/19/2023 Weight 125 lbs 09/19/2023 BMI 22.14 kg/m2 09/19/2023 Encounters Encounter Location Date Provider Diagnosis [facility] [address] [place] [address] 10/17/2023 Jessica Colon [address] [place] [address] [place] [address] 09/19/2023 Jessica Colon Encounter for gynecological examination (general) (routine) without abnormal findings Z01.419 ; Encounter for screening mammogram for malignant neoplasm of breast Z12.31 ; Other specified abnormal uterine and vaginal bleeding N93.8 and Hematuria, unspecified R31.9 [facility] [place] [address] [place] [address] 10/24/2023 Jessica Colon Abnormal uterine and vaginal bleeding, unspecified N93.9 Assessments Encounter Date Diagnosis (ICD Code) Assessment Notes Treatment Notes Treatment Clinical Notes Section Notes 09/19/2023 Encounter for gynecological examination (general) (routine) without abnormal findings (ICD-10 - Z01.419) NO PAP TEST, DUE IN 2025. 09/19/2023 Encounter for screening mammogram for malignant neoplasm of breast (ICD-10 - Z12.31) REGULAR MAMMOGRAMS AND SBE'S WERE RECOMMENDED. 10/24/2023 Abnormal uterine and vaginal bleeding, unspecified (ICD-10 - N93.9) DISCUSSED FRIABLE LOOKING CERVIX THAT BLED ON TOUCH. HER INTERMITTENT SPOTTING BEFORE MENSES MAY BE COMING FROM FRIABLE CERVIX. DISCUSSED NORMAL HSONO FINDINGS. WILL CALL HER WITH EMB RESULTS. 09/19/2023 Other specified abnormal uterine and vaginal [...] Provider Name:Jessica carr, 09/24/2024 10:00:00 AM, [address] [facility], [address], [place], [address], Insurance Providers Payer Name Payer Address Payer Phone Subscriber Number Group Number Insured Name Patient Relationship to Insured Coverage Start Date Coverage End Date [employer] [place] [address] [place] [address] [id number] KAROLINE HERNANDEZ Self - patient is the insured Medical (General) History Medical History History ICD Code Other microscopic hematuria R31.29 Other specified abnormal uterine and vag inal bleeding N93.8 Surgical History Surgery Date(Month/Year) Hospitalization History Reason Date(Month/Year) 3 Vaginal Deliveries
--- OUTSIDE RECORDS SUMMARY | 2024-09-13 17:39 | XMS_ITS ---
Author Organization [employer] Address [address] [facility] [address] [place] [address] Care Team Providers Care Internet Marketing Executive Name Role Phone JULIANNE DURAN Primary Care Provider Unavailab Jessica Mckinnon Unavailable [phone] REASON FOR VISIT AUB Encounters Encounter Location Date Provider Diagnosis [facility] [address] [place] [address] [address] [place] [address] 10/17/2023 Jessica Colon Plan Of Treatment Next Appt Details Provider Name:Jessica carr, 09/24/2024 10:00:00 AM, [address] [facility], [address], [place], [address], Progress Notes * BEAU HERNANDEZIDOB:1980 (44 yo F)Acc No.[id number]:10/17/2023 PROGRESS NOTES Patient:?KAROLINE HERNANDEZ Appointment Provider:?Jessica carr M.D. :1980???Age:43 Y???Sex:Female D ate:10/17/2023 Address:[facility] [address], [id number] Pcp:JULIANNE DURAN Subjective: * Chief Complaints: * ???1. AUB. * Medical History:? Objective: * Vitals:? Assessment: Plan: * Treatment: * Images: Billing Information: * Visit Code:? * Procedure Codes:? * Electronic signature of Conor Colon MD on 09/13/2024 at 05:38 PM EDT Sign off status: Pending * Appointment Provider:?Jessica Colon M.D. Date:?10/17/2023 Generated for [place] mason/Zev/Dashawn on:?09/13/2024 05:38 PM EDT
--- OUTSIDE RECORDS SUMMARY | 2024-09-13 17:39 | XMS_ITS ---
Author Organization [facility] Address [address] [address] Care Team Providers Care Terrazzo Grinder Name Role Phone JULIANNE DURAN Primary Care Provider Unavailab Jessica Mckinnon Unavailable [phone] Allergies No Known Allergies Results Component Value Reference Range Notes Test, Urine Reviewed date:10/24/2023 03:55:25 PM Interpretation: Performing Lab: Notes/Report: Test, Urine Negative SURGICAL PATHOLOGY Reviewed date:10/29/2023 10:28:46 AM Interpretation: Performing Lab:Testing performed or reported by [facility], a Service of [facility], [address] [place] [address] Inder Winters MD, [employer] [facility]# [id number] Notes/Report: Patient Name: KAROLINE HERNANDEZ Lab Patient [...] specimen processing and staining is performed at [facility], [address] [place] [address] (CLIA#[id number]). Its performance characteristics are determined by [facility]. Phone #: [phone], On-Call Pathologist: [id number] REASON FOR VISIT HSONO/EB ALL DONE/ AUB Medications Medication SIG (Take, Route, Frequency, Duration) Notes Start Date End Date Status amLODIPine Besylate 5 MG TAKE 1/2 TABLET BY MOUTH EVERY DAY Oral for 90 Active Encounters Encounter Location Date Provider Diagnosis [address] [place] [address] 10/24/2023 Jessica Colon Abnormal uterine and vaginal [...] Reason: Provider Name:Jessica carr, 09/24/2024 10:00:00 AM, [address] [place] [address], [address], [place], [address], Procedure Notes * Category Sub-Category Detail Notes [...] Notes * BEAU HERNANDEZIDOB:1980 (43 yo F)Acc No.[id number]:10/24/2023 Patient:?PILYBAL KAROLINE Appointment Provider:?Jessica carr M.D. :1980???Age:43 Y???Sex:Female D ate:10/24/2023 Address:[address] [place] [address] [address], , [id number] Pcp:JULIANNE DURAN Subjective: * Chief Complaints: * [...] Provider:?Jessica Colon M.D. Date:?10/24/2023 Generated for [place] mason/Zev/Luanasmitting on:?09/13/2024 05:39 PM EDT History and Physical Notes * [...]
--- OUTSIDE RECORDS SUMMARY | 2024-09-13 17:39 | XMS_ITS ---
Author Organization [facility] [employer] Address [address] [facility] [address] [place] [address] Care Team Providers Care Quality Compliance Consultant Name Role Phone JULIANNE DURAN Primary Care Provider Jessica Rm Unavailable [phone] Allergies No Known Allergies Results Component Value Reference Range Notes Test, Urine Reviewed date:10/17/2023 01:15:37 PM Interpretation: Performing Lab: Notes/Report: Test, Urine Negative REASON FOR VISIT HSONO/EB/ AUB Medications Medication SIG (Take, Route, Frequency, Duration) Notes Start Date End Date Status amLODIPine Besylate 5 MG TAKE 1/2 TABLET BY MOUTH EVERY DAY Oral for 90 Active Encounters Encounter Location Date Provider Diagnosis [facility] [address] [address] 10/17/2023 Jessica Colon Other specified abnormal uterine and vaginal bleeding N93.8 Assessments Encounter Date Diagnosis (ICD Code) Assessment Notes Treatment Notes Treatment Clinical Notes Section Notes 10/17/2023 Other specified abnormal uterine and vaginal bleeding (ICD-10 - N93.8) Plan Of Treatment Next Appt Details Provider Name:Jessica carr, 09/24/2024 10:00:00 AM, [address] [place] [address], [facility] [address], [place], [address], Progress Notes * BEAU HERNANDEZIDOB:1980 (44 yo F)Acc No.[id number]:10/17/2023 Patient:?KAROLINE HERNANDEZ Appointment Provider:?Jessica carr M.D. :1980???Age:43 Y???Sex:Female D ate:10/17/2023 Address:[address] [place] [address] [address], , [place] Pcp:JULIANNE DURAN Subjective: * Chief Complaints: * [...] of Conor Colon MD on 09/13/2024 at 05:39 PM EDT Sign off status: Pending * Appointment Provider:?Jessica Colon M.D. Date:?10/17/2023 Generated for [place] mason/Zev/eTransmitting on:?09/13/2024 05:39 PM EDT History and Physical [...]
== END 2024-09-13 15:41 | disposition home or self-care (01) ==
LOC: HO.HMCFM 14:48
PROVIDERS: PCP Physician Assistant Medical; Visit Provider Physician Assistant Medical
DX: M77.11 Lateral epicondylitis, right elbow (principal); I10 Essential (primary) hypertension; R31.29 Other microscopic hematuria

== ENCOUNTER → 2024-09-13 14:47 | Outpatient (BNVA) | payer BC, SELFPAY | PROVIDERS: PCP Physician Assistant Medical; Visit Provider Physician Assistant Medical | DX: I10 Essential (primary) hypertension (principal); M77.11 Lateral epicondylitis, right elbow; R31.29 Other microscopic hematuria; Z79.899 Other long term (current) drug therapy | CPT/HCPCS: 96127 ==

== ENCOUNTER 2024-09-27 07:43 | Outpatient (AMB) | payer BC, SELFPAY ==
--- NOTE | 2024-09-27 07:43 | A.OFFVIS_ITS ---
Intake Visit Reasons: Followup/CT(set) Intake Note: Patient presents today for tele visit follow up on: microscopic hematuria and CT scan results Imaging Completed: 07/20/24 Urology Medications: none Blood Thinner: none Smoker: Never Guest Services Manager Required: No Accompanied by: Self / Same As Patient Allergies cat dander Allergy (Verified 09/27/24 08:04) runny nose, itchy eyes dog dander Allergy (Verified 09/27/24 08:04) runny nose, itchy eyes Seasonal Allergies Allergy (Verified 09/27/24 08:04) runny nose, sneezing, itchy eye Medication List - Last Reconciled 09/27/24 by SAÚL Shaffer- amlodipine 5 mg PO DAILY 90 days betamethasone valerate 0.1% 1 appl topical BID PRN 30 days diclofenac sodium 1% (Arthritis Pain (diclofenac)) 2 grams topical QID multivitamin 1 tab PO DAILY HPI Comments Details: Viridiana is a very pleasant 44-year-old female patient of Dr. Bolden. She has a past medical history of seasonal allergies and hypertension. She is being followed up on today via video telehealth for her microscopic hematuria. In discussion with the patient today she reports to be doing and feeling well. She denies having had any bothersome urinary issues or concerns. Of note, during last office visit 06/15 patient underwent an in office cystoscopy with Dr. Reynolds cystoscopy findings with no suspicious bladder lesions visualized. Recent CT urogram results reviewed with the patient today 07/17 no urinary calculus or suspicious lesions identified Urine cytology 08/16 and 04/15 Negative for high-grade urothelial carcinoma. We discussed at length potential causes of microscopic hematuria. Will continue with surveillance monitoring at this time. 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 She does report compliance with PPE while mixing medications. She denies any history of smoking. She denies urinary urgency, urinary frequency, incontinence, nocturia, hematuria, dysuria, foul smelling urine, changes to urinary stream, flank pain, fever, and or chills. She is happy with her current voiding parameters. All questions were answered. She otherwise offers no other issues or concerns at this time. [facility], [facility] Medical History Right lateral epicondylitis Essential (primary) hypertension Surgical History S/P LASIK surgery of both eyes Family History Father No problems noted. Mother No problems noted. Social History Household Members: Spouse and Children Housing: House Alcohol intake: never Patient Tobacco Use Status: Never used Tobacco e-Cigarette/Vaping Use: Never Used Second Hand Smoke Exposure: No service: No Current occupational status: employed Current occupation: pharmacist Current occupational exposures/hazards: Yes (Works with chemotherapy) Cognitive needs: No Hearing needs: No Vision needs: No Review of Systems Const All systems reviewed & are unremarkable except as noted in HPI and below Physical Exam Const General: cooperative, healthy appearing, comfortable, no acute distress, well developed, alert and awake Orientation/consciousness: patient oriented x3 Resp Effort & Inspection: normal respiratory effort and able to speak in complete sentences Neuro General: patient oriented x3 Psych Appearance: grossly normal and well kempt Mental Status: mental status grossly normal Speech and movement: Clear speech present Affect: normal affect Attitude: cooperative Thought process: Normal thought process present Thought content: Normal thought content present Insight: Fair insight present (Psych) Judgement: Fair judgement present (Psych) Telehealth Telehealth Telehealth Platform: [facility] Location of provider rendering services: practice address Location of patient: address on file Patient Identification confirmed using: Name, : Yes Telehealth method: video Patient verbally consented to treatment: Yes Patient verbally consented to billing insurance company: Yes Patient informed of any privacy concerns related to visit: Yes Minutes spent on Phone/Video with Pt.: 15 Results Reviewed Results Reviewed: Date of Service: 07/20/24 Procedure(s): CT urogram Findings: The lung bases are clear. No renal calculus noted on the noncontrast portion of the exam. No suspicious mass noted. A few very small low-density lesions are present likely cysts. These are too small to confidently characterize by CT. Delayed imaging fails to demonstrate adequate opacification of the left ureter. The right ureter is unremarkable. Several phleboliths are present within the pelvis. The liver, gallbladder, spleen, splenule, adrenal glands and pancreas are unremarkable. No bowel obstruction or free air. Normal appendix. Uterus and adnexa are within normal limits. No significant retroperitoneal or mesenteric adenopathy. Impression: No urinary calculus or suspicious lesion identified. The left ureter is poorly evaluated due to incomplete opacification. Assessment & Plan Assessment & Plan (1) Microscopic hematuria: Code(s): R31.29 - Other microscopic hematuria Category: Medical Plan Recent CT results reviewed with the patient today; as noted above. Patient currently denies any bothersome urinary issues or concerns. She reports be happy with current voiding parameters. Will continue with surveillance monitoring. Follow-up in 6 months; or sooner with any issues, concerns, and or questions. Patient Instructions: The patient had an opportunity to ask questions regarding the treatment plan. All questions were answered. Physical exam, labs, and imaging were discussed and reviewed in detail. As well as risks, benefits, and discussion of treatment choices. No major barriers to understanding were identified. The patient expressed understanding and agreement with the above treatment plan. The patient was made aware they should contact our office by phone for worsening of their current condition, the appearance of new symptoms, or with any questions or concerns. Compliance is encouraged with any medications and follow up testing that is ordered. It is a privilege to be allowed the opportunity to participate in? your urological care.? Again, if you have any questions or concerns If you have any questions or concerns please do not hesitate to contact me. The office is [phone]. This note is constructed using voice recognition software. While every effort has been made to ensure accuracy biometrics technician errors may have been included. Yours sincerely, RAMON Shaffer Coding Level of Care Code Tele Est Pt Level 3 (66938) Diagnoses Microscopic hematuria R31.29
--- OUTSIDE RECORDS SUMMARY | 2024-09-27 07:45 | XMS_ITS | Patient Health Record ---
Author Organization [employer] [facility] Address [address] [address] Care Team Providers Care Hand Weaver Name Role Phone JULIANNE DURAN Primary Care Provider Unavailab Jessica Mckinnon Unavailable [phone] Allergies No Known Allergies Results Component Value Reference Range Notes SURGICAL PATHOLOGY Reviewed date:10/29/2023 10:28:46 AM Interpretation: Performing Lab:Testing performed or reported by [facility], a Service of [facility], [address] [place] [address] Inder Winters MD, Husker Operator CLIA# [id number] Notes/Report: Patient Name: KAROLINE HERNANDEZ Lab Patient [...] specimen processing and staining is performed at [facility], [address] [place] [address] (CLIA#[id number]). Its performance characteristics are determined by [facility]. Phone #: [phone], On-Call Pathologist: [id number] Test, Urine Reviewed date:10/24/2023 03:55:25 PM Interpretation: [...] Status Risk Notes Problem Abnormal vaginal bleeding (090420426) Other specified abnormal uterine and vaginal bleeding (N93.8) Active confirmed Problem Abnormal uterine bleeding ([id number] 00) Abnormal uterine and vaginal bleeding, unspecified (N93.9) Active confirmed Encounters Encounter Location Date Provider Diagnosis [email or web address] [place] [address] 10/17/2023 Jessica Correava [email or web address] [place] [address] 10/24/2023 Jessica Correava Abnormal uterine and vaginal bleeding, unspecified N93.9 [...] HER WITH EMB RESULTS. Plan Of Treatment Pending Test Test Name Order Date Urinalysis 05/13/2019 Urinalysis 06/14/2021 Urinalysis 09/19/2023 COMPLETE URINALYSIS 09/16/2022 THIN PREP,HPV,JAH IF HPV+ (>29YR)(DIAG) 09/13/2022 URINE CULTURE 09/16/2022 MM Digital Mammo Screening 09/19/2023 MM Digital Mammo Screening 06/14/2021 MM Digital Mammo Screening 09/13/2022 MM Digital Mammo Screening 05/24/2020 Next Appt Details Provider Name:Jessica carr, 02/18/2025 01:20:00 PM, [address] [facility], [address], [place], [address], Insurance Providers Payer Name Payer Address Payer Phone Subscriber Number Group Number Insured Name Patient Relationship to Insured Coverage Start Date Coverage End Date [employer] [place] [address] [place] [address] [phone] [id number] KAROLINE HERNANDEZ Self - patient is the insured Medical (General) History Medical History History ICD Code Other microscopic hematuria R31.29 Other specified abnormal uterine and vag inal bleeding N93.8 Surgical History Surgery Date(Month/Year) Hospitalization History Reason Date(Month/Year) 3 Vaginal Deliveries
--- OUTSIDE RECORDS SUMMARY | 2024-09-27 07:45 | XMS_ITS ---
Author Organization [employer] [facility] Address [address] [address] Care Team Providers Care Founder & Ceo Name Role Phone JULIANNE DURAN Primary Care Provider Unavailab Jessica Mckinnon Unavailable [phone] Allergies No Known Allergies Results Component Value Reference Range Notes Test, Urine Reviewed date:10/24/2023 03:55:25 PM Interpretation: Performing Lab: Notes/Report: Test, Urine Negative SURGICAL PATHOLOGY Reviewed date:10/29/2023 10:28:46 AM Interpretation: Performing Lab:Testing performed or reported by [facility], a Service of [facility], [address] [place] [address] Inder Winters MD, [employer] Drier [facility]# [id number] Notes/Report: Patient Name: KAROLINE HERNANDEZ Lab Patient [...] specimen processing and staining is performed at [facility], [address] [place] [address] (CLIA#[id number]). Its performance characteristics are determined by [facility]. Phone #: [phone], On-Call Pathologist: [id number] REASON FOR VISIT HSONO/EB ALL DONE/ AUB Medications Medication SIG (Take, Route, Frequency, Duration) Notes Start Date End Date Status amLODIPine Besylate 5 MG TAKE 1/2 TABLET BY MOUTH EVERY DAY Oral for 90 Active Encounters Encounter Location Date Provider Diagnosis [address] [place] [address] 10/24/2023 Jessica Colon Abnormal uterine and vaginal [...] Follow Up: prn, Reason: Provider Name:Jessica carr, 02/18/2025 01:20:00 PM, [address] [place] [address], [address], [place], [address], Procedure Notes * Category Sub-Category Detail Notes [...] Notes * BEAU HERNANDEZIDOB:1980 (43 yo F)Acc No.[id number]:10/24/2023 Patient:?PILYBAL KAROLINE Appointment Provider:?Jessica carr M.D. :1980???Age:43 Y???Sex:Female D ate:10/24/2023 Address:[address] [place] [address] [address] Aguilar, , [id number] Pcp:JULIANNE DURAN Subjective: * Chief Complaints: * [...] Colon M.D. Date:?10/24/2023 Generated for [place] mason/Zev/Luanasmitting on:?09/27/2024 07:45 AM EDT History and Physical Notes * HPI [...]
--- OUTSIDE RECORDS SUMMARY | 2024-09-27 07:46 | XMS_ITS ---
Author Organization [facility] [employer] Address [address] [facility] [address] [place] [address] Care Team Providers Care Car Ferry Master Name Role Phone JULIANNE DURAN Primary Care Provider Jessica Rm Unavailable [phone] Allergies No Known Allergies Results Component Value Reference Range Notes Test, Urine Reviewed date:10/17/2023 01:15:37 PM Interpretation: Performing Lab: Notes/Report: Test, Urine Negative REASON FOR VISIT HSONO/EB/ AUB Medications Medication SIG (Take, Route, Frequency, Duration) Notes Start Date End Date Status amLODIPine Besylate 5 MG TAKE 1/2 TABLET BY MOUTH EVERY DAY Oral for 90 Active Encounters Encounter Location Date Provider Diagnosis [facility] [address] [address] 10/17/2023 Jessica Colon Other specified abnormal uterine and vaginal bleeding N93.8 Assessments Encounter Date Diagnosis (ICD Code) Assessment Notes Treatment Notes Treatment Clinical Notes Section Notes 10/17/2023 Other specified abnormal uterine and vaginal bleeding (ICD-10 - N93.8) Plan Of Treatment Next Appt Details Provider Name:Jessica carr, 02/18/2025 01:20:00 PM, [address] [facility], [address], [place], [address], Progress Notes * BEAU HERNANDEZIDOB:1980 (44 yo F)Acc No.[id number]:10/17/2023 Patient:?KAROLINE HERNANDEZ Appointment Provider:?Jessica carr M.D. :1980???Age:43 Y???Sex:Female D ate:10/17/2023 Address:[address] [place] [address] ARIA Aguilar, , [id number] Pcp:JULIANNE DURAN Subjective: * Chief Complaints: * [...] Electronic signature of Conor Colon MD on 09/27/2024 at 07:45 AM EDT Sign off status: Pending * Appointment Provider:?Jessica Colon M.D. Date:?10/17/2023 Generated for [place] mason/Zev/eTransmitting on:?09/27/2024 07:45 AM EDT History and Physical [...]
--- OUTSIDE RECORDS SUMMARY | 2024-09-27 07:46 | XMS_ITS ---
Author Organization [employer] Address [address] [facility] [address] [place] [address] Care Team Providers Care Storm Door Maker Name Role Phone JULIANNE DURAN Primary Care Provider Unavailab Jessica Mckinnon Unavailable [phone] REASON FOR VISIT Annual TACTICAL INTELLIGENCE OFFICER Physical Encounters Encounter Location Date Provider Diagnosis [facility] [employer] [facility] [employer] [address] [place] [address] [address] [place] [address] 09/24/2024 Jessica Colon Plan Of Treatment Next Appt Details Provider Name:Jessica carr, 02/18/2025 01:20:00 PM, [address] [facility], [address], [place], [address], Progress Notes * PILYBEAU SELBYIDOB:1980 (44 yo F)Acc No.[id number]:09/24/2024 PROGRESS NOTES Patient:?KAROLINE HERNANDEZ Appointment Provider:?Jessica carr M.D. :1980???Age:44 Y???Sex:Female D ate:09/24/2024 Address:[facility] [address], [id number] Pcp:JULIANNE DURAN Subjective: * Chief Complaints: * ???1. Annual TACTICAL INTELLIGENCE OFFICER Physical. * Medical History:? Objective: * Vitals:? Assessment: Plan: * Treatment: * Images: Billing Information: * Visit Code:? * Procedure Codes:? * Electronic signature of Conor Colon MD on 09/27/2024 at 07:45 AM EDT Sign off status: Pending * Appointment Provider:?Jessica Colon M.D. Date:?09/24/2024 Generated for [place] mason/Zev/Dashawn on:?09/27/2024 07:45 AM EDT
== END 2024-09-27 08:06 | disposition home or self-care (01) ==
LOC: HO.HUSH 07:43
PROVIDERS: PCP Physician Assistant Medical; Visit Provider Nurse Practitioner Family
DX: R31.29 Other microscopic hematuria (principal)
CPT/HCPCS: 99213

== ENCOUNTER → 2024-09-27 07:43 | Outpatient (BNVA) | payer BC, SELFPAY | PROVIDERS: PCP Physician Assistant Medical; Visit Provider Nurse Practitioner Family ==

== ENCOUNTER 2025-01-19 14:44 | Outpatient (REF) | payer BC, SELFPAY ==
--- NOTE | ~2025-01-19 | MM_ITS ---
EXAMINATION: MM SCREENING DIGITAL BREAST TOMOSYNTHESIS, BILATERAL CLINICAL INFORMATION: Screening. Asymptomatic. COMPARISON: Mammography: Comparison is made with available priors TECHNIQUE: Digital breast mammography with tomosynthesis is performed in both the craniocaudal and mediolateral oblique views along with computer-aided detection (CAD). FINDINGS: The breasts are heterogeneously dense, which may obscure small masses (ACR BI-RADS breast composition Category c). There are no significant masses, abnormal calcifications, or other abnormalities. MM/MM tomosynthesis screening BI IMPRESSION: No mammographic evidence of malignancy. ASSESSMENT: BI-RADS BI-RADS 1 - Negative RECOMMENDATION: Routine annual mammography screening. 1 year F/U This examination should not preclude the clinical evaluation of a suspicious palpable abnormality. This patient's information was entered into a reminder system with a target due date for their next mammogram. Electronically signed by: Jessica Nowak DO 01/21/2025 09:04 AM YOLANDA
--- OUTSIDE RECORDS SUMMARY | 2025-01-19 15:27 | XMS_ITS | Patient Health Record ---
Author Organization [employer] [facility] Address [address] [address] Care Team Providers Care Fruit Shipper Name Role Phone JULIANNE DURAN Primary Care Provider Unavailab Jessica Mckinnon Unavailable [phone] Allergies No Known Allergies Reason For Referral No Information Medications Medication SIG (Take, Route, Frequency, Duration) Notes Start Date End Date Status amLODIPine Besylate 5 MG TAKE 1/2 TABLET BY MOUTH EVERY DAY Oral; Duration: 90 Active Social History Tobacco Use: Social [...] Status Risk Notes Problem Abnormal vaginal bleeding ([id number]) Other specified abnormal uterine and vaginal bleeding (N93.8) Active confirmed Problem Abnormal uterine and vaginal bleeding, unspecified (N93.9) Active confirmed Plan Of Treatment Pending Test Test Name Order Date Urinalysis 05/13/2019 Urinalysis 09/19/2023 Urinalysis 06/14/2021 COMPLETE URINALYSIS 09/16/2022 THIN PREP,HPV,JAH IF HPV+ (>29YR)(DIAG) 09/13/2022 URINE CULTURE 09/16/2022 MM Digital Mammo Screening 06/14/2021 MM Digital Mammo Screening 05/24/2020 MM Digital Mammo Screening 09/19/2023 MM Digital Mammo Screening 09/13/2022 Next Appt Details Provider Name:Jessica carr, 02/18/2025 01:20:00 PM, [address] [facility], [address], [place], [address], Insurance Providers Payer Name Payer Address Payer Phone Subscriber Number Group Number Insured Name Patient Relationship to Insured Coverage Start Date Coverage End Date [employer] [place] [address] [place] [address] [phone] [id number] KAROLINE HERNANDEZ Self - patient is the insured Medical (General) History Medical History History ICD Code Other microscopic hematuria R31.29 Other specified abnormal uterine and vag inal bleeding N93.8 Surgical History Surgery Date(Month/Year) Hospitalization History Reason Date(Month/Year) 3 Vaginal Deliveries
== END 2025-01-19 14:45 | disposition home or self-care (01) ==
LOC: HO.MAMMO 14:44
PROVIDERS: PCP Physician Assistant Medical; Visit Provider Family Medicine
DX: Z12.31 Encounter for screening mammogram for malignant neoplasm of breast (principal)
CPT/HCPCS: 77063; 77067

== ENCOUNTER → 2025-01-19 15:00 | Outpatient (BNV) | payer BC, SELFPAY | PROVIDERS: PCP Physician Assistant Medical; Visit Provider Internal Medicine | DX: Z12.31 Encounter for screening mammogram for malignant neoplasm of breast (principal) | CPT/HCPCS: 77063; 77067 ==

== ENCOUNTER 2025-03-21 16:12 | Outpatient (AMB) | payer BC, SELFPAY ==
--- OUTSIDE RECORDS SUMMARY | 2023-10-17 05:00 | XMS_ITS ---
Author Organization [facility] Address [address] [facility] [address] [place] [address] Care Team Providers Care Chiropractor Assistant Name Role Phone JULIANNE DURAN Primary Care Provider Unavailab Jessica Mckinnon Unavailable [phone] REASON FOR VISIT AUB Encounters Encounter Location Date Provider Diagnosis [facility] [address] [place] [address] [address] [place] [address] 10/17/2023 Jessica Colon Plan Of Treatment Next Appt Details Provider Name:Jessica carr, 03/06/2026 09:00:00 AM, [address] [facility], [address], [place], [address], Progress Notes * BEAU HERNANDEZIDOB:1980 (45 yo F)Acc No.[id number]:10/17/2023 PROGRESS NOTES Patient: KAROLINE OSMAN Appointment Provider: Margaret Colon M.D. :1980 A ge:43 Y S ex:Female Date:10/17/2023 Address:[facility] [address] [place], [id number] Pcp:JULIANNE DURAN Subjective: * Chief Complaints: * 1 . AUB. * Medical History: Objective: * Vitals: Assessment: Plan: * Treatment: * Images: Billing Information: * Visit Code: * Procedure Codes: * Electronic signature of Conor Colon MD on 03/21/2025 at 06:13 PM EDT Sign off status: Pending * Appointment Provider: Margaret Colon M.D. Date: 0 10/17/2023 Generated for China mason/Zev/Dashawn on: 0 03/21/2025 06:13 PM EDT
--- OUTSIDE RECORDS SUMMARY | 2023-10-17 05:10 | XMS_ITS ---
Author Organization [facility] Address [address] [facility] [address] [place] [address] Care Team Providers Care Vessel Manager Name Role Phone JULIANNE DURAN Primary Care Provider Unavailab Jessica Mckinnon Unavailable [phone] Allergies No Known Allergies Results Component Value Reference Range Notes Test, Urine Reviewed date:10/17/2023 01:15:37 PM Interpretation: Performing Lab: Notes/Report: Test, Urine Negative REASON FOR VISIT HSONO/EB/ AUB Medications Medication SIG (Take, Route, Frequency, Duration) Notes Start Date End Date Status amLODIPine Besylate 5 MG TAKE 1/2 TABLET BY MOUTH EVERY DAY Oral; Duration: 90 Active Encounters Encounter Location Date Provider Diagnosis [facility] [address] [place] [phone] 10/17/2023 Jessica Colon Other specified abnormal uterine and vaginal bleeding N93.8 Assessments Encounter Date Diagnosis (ICD Code) Assessment Notes Treatment Notes Treatment Clinical Notes Section Notes 10/17/2023 Other specified abnormal uterine and vaginal bleeding (ICD-10 - N93.8) Plan Of Treatment Next Appt Details Provider Name:Jessica carr, 03/06/2026 09:00:00 AM, [address] [place], [place] [address]t [facility], [address], [place], [address], Progress Notes * BEAU HERNANDEZIDOB:1980 (45 yo F)Acc No.[id number]:10/17/2023 Patient: Juve PERALTA KAROLINE Appointment Provider: Margaret Colon M.D. :1980 A ge:43 Y S ex:Female Date:10/17/2023 Address:[address] [place] [address] [place], [place] Pcp:JULIANNE DURAN Subjective: * Chief Complaints: * 1 . HSONO/EB/ AUB. * HPI: N ew/Follow-up Patient Consult: KITA HAS HAD SPOTTING FOR MANY DAYS PRIOR TO HER MENSES AND IS SCHEDULED FOR HSONO TODAY BUT SHE IS PRESENTLY MENSTRUATING. WE ARE POSTPONING HER PROCEDURE.? SHE AGREED TO RETURN IN 2 WEEKS. * Medical History: O ther microscopic hematuria, Other specified abnormal uterine and vaginal bleeding. * Medications: T aking amLODIPine Besylate 5 MG Tablet TAKE 1/2 TABLET BY MOUTH EVERY DAY Oral , Medication List reviewed and reconciled with the patient * Allergies: N .K.D.A. Objective: * Vitals: Assessment: * Assessment: 1. O ther specified abnormal uterine and vaginal bleeding - N93.8 Plan: * Treatment: Value Reference Range P regnancy Test, Urine Negative * Images: Billing Information: * Visit Code: * Procedure Codes: * Electronic signature of Conor Colon MD on 03/21/2025 at 06:13 PM EDT Sign off status: Pending * Appointment Provider: Margaret Colon M.D. Date: 0 10/17/2023 Generated for China mason/Zev/Ramyaitting on: 0 03/21/2025 06:13 PM EDT History and Physical Notes * HPI (History of Present Illness) Category Sub-Category Detail Notes Category Not es New/Follow-up Patient Consult KITA HAS HAD SPOTTING FOR MANY DAYS PRIOR TO HER MENSES AND IS SCHEDULED FOR HSONO TODAY BUT SHE IS PRESENTLY MENSTRUATING. WE ARE POSTPONING HER PROCEDURE. SHE AGREED TO RETURN IN 2 WEEKS.
--- OUTSIDE RECORDS SUMMARY | 2024-09-24 06:00 | XMS_ITS ---
Author Organization [employer] Address [address] [employer] [place] [address] Care Team Providers Care Plant Guard Name Role Phone JULIANNE DURAN Primary Care Provider Unavailab Jessica Mckinnon Unavailable [phone] REASON FOR VISIT Annual FIELD MARKETING LEAD Physical Encounters Encounter Location Date Provider Diagnosis [facility] [employer] [address] [place] [address] [address] [place] [address] 09/24/2024 Jessica Colon Plan Of Treatment Next Appt Details Provider Name:Jessica carr, 03/06/2026 09:00:00 AM, [address] [facility], [address], [place], [address], Progress Notes * BEAU HERNANDEZIDOB:1980 (45 yo F)Acc No.[id number]:09/24/2024 PROGRESS NOTES Patient: KAROLINE OSMAN Appointment Provider: Margaret Colon M.D. :1980 A ge:44 Y S ex:Female Date:09/24/2024 Address:[facility] [address], [id number] Pcp:JULIANNE DURAN Subjective: * Chief Complaints: * 1 . Annual FIELD MARKETING LEAD Physical. * Medical History: Objective: * Vitals: Assessment: Plan: * Treatment: * Images: Billing Information: * Visit Code: * Procedure Codes: * Electronic signature of Conor Colon MD on 03/21/2025 at 06:13 PM EDT Sign off status: Pending * Appointment Provider: Margaret Colon M.D. Date: 0 09/24/2024 Generated for [place] mason/Zev/Dashawn on: 0 03/21/2025 06:13 PM EDT
--- NOTE | 2025-03-21 16:17 | A.OFFPC_ITS ---
Vital Signs 03/21/25 16:24 Height 5 ft 3 in Weight 129 lb 8 oz BMI 22.9 BP 126/88 Blood Pressure Location Lt brachial Position Sitting Respiration 13 Pulse 83 Pulse Source Pulse Oximeter Temp 97.9 F Temp Source Temporal Artery Scan Pulse Oximetry (%) 97 Oxygen Delivery Method Room Air Intake Visit Reasons: cpe 6 months Intake Note: Viridiana presents in the office today for her annual physical. Allergies cat dander Allergy (Verified 03/21/25 16:23) runny nose, itchy eyes dog dander Allergy (Verified 03/21/25 16:23) runny nose, itchy eyes Seasonal Allergies Allergy (Verified 03/21/25 16:23) runny nose, sneezing, itchy eye Medication List - Last Reconciled 03/22/25 by JOSE Tavera amlodipine 5 mg PO DAILY 90 days betamethasone valerate 0.1% 1 appl topical BID PRN 30 days fluticasone furoate 27.5 mcg/actuation (Flonase Sensimist) 2 sprays intranasal DAILY loratadine (Claritin) 10 mg PO DAILY Tobacco use date assessed: 03/21/25 Dental Screening Dental Screen Date: 03/21/25 Did you have a dental visit in the last 12 months?: Yes Did you have a dental problem in the last 6 months where you did not have access to dental care?: No Was dental information given to patient?: Patient has dentist HPI HPI Comments History of Present Illness Details This is a 45-year-old female with a past medical history of hypertension and microscopic hematuria presenting for he follow up. She is doing well. A guardianship agreement was reached with the biological parents of her 5-year-old son who has been in her care since infancy. She saw Urology for workup of microhematuria. She had a negative cystoscopy. She had a urogram CT which demonstrated no masses or stones. She will follow up with Urology. Hypertension is treated with amlodipine. Generally when she checks her blood pressure at home it is under 130/80. She gets anxious coming to the appointments. She is a nonsmoker. ROS: Constitutional: No unexplained weight loss, fever, chills, fatigue or night sweats. Eyes: No vision changes, blurry vision, double vision, eye pain, eye redness, eye discharge. ENT: No hearing loss, sneezing, congestion, runny nose or sore throat. Respiratory: No shortness of breath, cough or sputum production. Cardiovascular: No chest pain, chest pressure or chest discomfort. No palpitations or pedal edema. Gastrointestinal: No anorexia, nausea, vomiting or diarrhea. No abdominal pain or blood in stool. Genitourinary: No dysuria, hematuria, urinary frequency. Neurologic: No headache, dizziness, syncope, unilateral weakness, ataxia, numbness or tingling in the extremities. Musculoskeletal: No muscle pain, back pain, joint pain or swelling. Hematologic/Lymphatics: No bleeding or bruising. No painful lymph nodes. Skin: No rash or itching. Endocrine: No cold or heat intolerance. No polyuria or polydipsia. Psychiatric: No depression or anxiety. No SI/HI. Physical exam: Constitutional: Alert, in no distress. Head: Normocephalic. Eyes: Pupils are equal, round and reactive to light. Extraocular muscles intact. Ear, Nose and Throat: Canals clear. TMs normal. Normal nasal mucosa. No nasal discharge. No oral lesions. Neck: Supple, Full range of motion. No lymphadenopathy. No palpable thyroid masses. Respiratory: Clear to auscultation. Cardiovascular: S1 S2 regular. No murmurs. No carotid bruits. Gastrointestinal: Abdomen soft, non-tender, non-distended. Normal bowel sounds. No palpable masses. Genitourinary: No costovertebral angle tenderness. Neurologic: No focal neurological deficits. Symmetric patellar reflexes. Moves all extremities spontaneously. Sensation intact bilaterally. Skin: No rashes or lesions. Musculoskeletal: No gross deformities. Normal range of motion. Extremities: Warm and well perfused. No clubbing, cyanosis or edema. 3+ peripheral pulses bilaterally. Psychiatric: Normal mood and affect [facility] Medical History (Updated 03/21/25 @ 16:47 by JOSE Tavera) Screening for cardiovascular condition Right lateral epicondylitis Essential (primary) hypertension Surgical History S/P LASIK surgery of both eyes Family History Father No problems noted. Mother No problems noted. 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 1. Little interest or pleasure in doing things: not at all 2. Feeling down, depressed, or hopeless: not at all 3. Trouble falling or staying asleep, or sleeping too much: not at all 4. Feeling tired or having little energy: not at all 5. Poor appetite or overeating: not at all 6. Feeling bad about yourself - or that you are a failure or have let yourself or your family down: not at all 7. Trouble concentrating on things, such as reading the newspaper or watching television: not at all 8. Moving or speaking so slowly that other people could have noticed. Or the opposite - being so fidgety or restless that you have been moving around a lot more than usual: not at all 9. Thoughts that you would be better off or of hurting yourself in some way: not at all Total score: 0 Depression Screening Interpretation: Negative Depression Screening Done: Yes Source: Developed by Drs. Jean Carlos Sotelo, Toya Giron, Javon Rubio and colleagues, with an educational harris from [employer]. Thrive Questionnaire Date Thrive assessed: 03/21/25 I am a: Patient What is your living situation today?: I have a steady place to live Within the past 12 months, did the food you bought not last and you didn't have the money to get more?: Never true Within the past 12 months, did you worry whether your food would run out before you got money to buy more?: Never true Do you have trouble paying for medicines?: No Do you have trouble getting transportation to medical appointments?: No Do you have trouble paying your heating and electricity bill?: No Do you have trouble taking care of your child, family member or friend?: No Do you have trouble with day-to-day activities such as bathing, preparing meals, shopping, managing finances, etc.?: No Are you currently unemployed and looking for a job?: No Are you interested in more education?: No Please select the resources that you would like help with: None Currently or been in a relationship where the following occur: No concerns reported THRIVE Score: 0 ARMOND-7 AMB Questionnaire ARMOND-7 Date ARMOND - 7 assessed: 03/21/25 Feeling nervous, anxious, or on edge: 0 = Not at all Not being able to stop or control worryin = Not at all Worrying too much about different things: 0 = Not at all Trouble relaxin = Several days Being so restless that it is hard to sit still: 0 = Not at all Becoming easily annoyed or irritable: 0 = Not at all Feeling afraid as if something awful might happen: 0 = Not at all Total ARMOND-7 score (0-4 normal; 5-9 mild; 10-14 moderate; 15-21 severe): 1 Source: Developed by Drs. Jean Carlos Sotelo, Toya Giron, Javon Rubio and colleagues, with an educational harris from [employer]. Physical exam (Primary Care) Vital Signs: Last Vital Signs Temp 97.9 F 03/21/25 16:24 Pulse 83 03/21/25 16:24 Resp 13 03/21/25 16:24 BP 126/88 03/21/25 16:24 Pulse Ox 97 03/21/25 16:24 Oxygen Delivery Method Room Air 03/21/25 16:24 BMI result Body Mass Index 22.9 Tobacco/Smoking Status: Tobacco use Status Tobacco use date assessed 03/21/25 03/21/25 16:27 Patient Tobacco Use Status Never used Tobacco 03/21/25 16:24 e-Cigarette/Vaping Use Never Used 03/21/25 16:24 PHQ-9: PHQ-9 Score PHQ-9: Total score 0 03/21/25 17:18 Depression Screening Interpretation: Negative Thrive Assessment: Date of Thrive Assessment Date Thrive assessed 03/21/25 03/21/25 16:22 Currently or been in a relationship where the following occur: No concerns reported Office Procedures Flu Questionnaire Does the patient have a severe egg allergy?: No Does the patient have severe life threatening allergies?: No Does the patient have a fever or illness today?: No Has the patient ever had Guillain-Tuttle Syndrome?: No Has the patient ever had any past reaction to a flu shot?: No Immunizations Fluarix 1645-8251 (PF) 45 mcg (15 mcg x 3)/0.5 mL IM syringe Performing Provider: JOSE Tavera Performing Location: [facility] [place] [facility] Administered by: Yolette Scott CMA on 03/21/25 17:00 Dose Route Admin Location Dispensed Lot Number Expiration Date [employer] 0.5 mL IM Right Deltoid 0.5 mL [id number] 12/20/25 [id number] [employer]SM[employer] VIS Given Date VIS Provided VIS Publication Date 03/21/25 Single Vaccine 24 Eligibility Eligibility Date Funding Source Not VFC Eligible 03/21/25 Private Boostrix Tdap 2.5 Lf unit-8 mcg-5 Lf/0.5 mL intramuscular syringe Performing Provider: JOSE Tavera Performing Location: [facility] Administered by: Yolette Scott CMA on 03/21/25 17:00 Dose Route Admin Location Dispensed Lot Number Expiration Date [employer] St[employer] 0.5 mL IM Left Deltoid 0.5 mL [id number] 04/15/27 [id number] [employer]LA[employer] Total Dispensed Waste 0.5 mL 0 % VIS Given Date VIS Provided VIS Publication Date 03/21/25 Single Vaccine 21 Eligibility Eligibility Date Funding Source Not VF Eligible 03/21/25 Private Coding Level of Care Code Est Pt Prev Care 40-64y(69978) Diagnoses Routine physical examination Z00.00 Essential (primary) hypertension I10 Assessment & Plan Assessment & Plan (1) Routine physical examination: Code(s): Z00.00 - Encounter for general adult medical examination without abnormal findings Category: Medical Plan: Patient is seen today for a routine physical. As part of this visit we reviewed the following issues, which are considered and essential part of preventative health in this age group: - Breast Cancer screening - Annual Artist Manager exam - Screening for colon cancer - Blood pressure screening annually - Cholesterol screening - Osteoporosis prevention including calcium/vitamin D intake, weight bearing exercise & smoking cessation - Nutritional and exercise counseling - Counseling of injury prevention including fire prevention, smoke alarms and seat belt usage - Screening for depression - Prevention of and/or testing for infectious diseases - Education about skin cancer - Recommendations about immunizations - Recommendation of an eye exam - Screening for substance abuse (2) Essential (primary) hypertension: Code(s): I10 - Essential (primary) hypertension Category: Medical Plan: She has a fast hypertension. She will continue to monitor at home and call if readings are over 130/80. Continue amlodipine. Plan Follow up in 1 year for annual physical exam. Orders: Orders Lipid Panel 03/21/25 I10 - Essential (primary) hypertension, Z13.6 - Encounter for screening for cardiovascular disorders TSH reflex Free T4 03/21/25 I10 - Essential (primary) hypertension, Z13.6 - Encounter for screening for cardiovascular disorders Influenza 0241-1950 Immunization 03/21/25 Z23 - Encounter for immunization Comprehensive Met. Panel 03/21/25 I10 - Essential (primary) hypertension, Z13.6 - Encounter for screening for cardiovascular disorders Complete Blood Count no Diff 03/21/25 I10 - Essential (primary) hypertension, Z13.6 - Encounter for screening for cardiovascular disorders TDaP Immunization 03/21/25 Z23 - Encounter for immunization Medications: Refilled amlodipine 5 mg PO DAILY 90 tabs 3RF 90 days betamethasone valerate 0.1% 1 appl topical BID PRN 60 grams 3RF skin irritation 30 days
[2025-03-21 16:24] VITALS: BP 126/88; PULSE 83; RESP 13; TEMP 36.6; O2SAT 97; BMI 22.9
--- OUTSIDE RECORDS SUMMARY | 2025-03-21 18:13 | XMS_ITS | Patient Health Record ---
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 Role Phone JULIANNE DURAN Primary Care Provider Unavailab Jessica Mckinnon Unavailable [phone] Allergies No Known Allergies Results Component Value Reference Range Notes Urinalysis Reviewed date:02/18/2025 01:50:53 PM Interpretation: Performing Lab: Notes/Report: PH 5.0 PROTEIN Neg GLUCOSE Neg BLOOD Small Reason For Referral No Information Medications Medication SIG (Take, Route, Frequency, Duration) Notes Start Date End Date Status amLODIPine Besylate 5 MG TAKE 1/2 TABLET BY MOUTH EVERY DAY Oral; Duration: 90 Active Social History Tobacco Use: Social History Observation Description Date Details (start date - stop date) Never Smoker NA - NA Sexual History Question Answer Notes Had sex in the past 12 months (vaginal, oral, or anal)? Yes with Men only Prevention strategies discussed: Other Have you ever had a Sexually transmitted disease ? No AUDIT-C (Standard) Question Answer Notes Did you have a drink containing alcohol in the p ast year? No Points 0 Interpretation Negative Tobacco Control (Standard) Question Answer Notes Tobacco use: Nonsmoker Problems Problem Type SNOMED Code ICD Code Onset Dates Problem Status W/U Status Risk Notes Problem Abnormal vaginal bleeding (942875813) Other specified abnormal uterine and vaginal bleeding (N93.8) Active confirmed Problem Abnormal uterine bleeding ([id number] 00) Abnormal uterine and vaginal bleeding, unspecified (N93.9) Active confirmed Vital Signs Temperature 98.1 degrees Fahrenheit 02/18/2025 Blood pressure diastolic 90 mm Hg 02/18/2025 Height 63 in 02/18/2025 Blood pressure systolic 144 mm Hg 02/18/2025 Weight 130 lbs 02/18/2025 BMI 23.03 kg/m2 02/18/2025 Encounters Encounter Location Date Provider Diagnosis Total [facility] [address] [place] [address] 02/18/2025 Jessica Colon Encounter for gynecological examination (general) (routine) without abnormal findings Z01.419 ; Encounter for screening mammogram for malignant neoplasm of breast Z12.31 ; Personal history of other diseases of the female genital tract Z87.42 and Other specified counseling Z71.89 Assessments Encounter Date Diagnosis (ICD Code) Assessment Notes Treatment Notes Treatment Clinical Notes Section Notes 02/18/2025 Encounter for gynecological examination (general) (routine) without abnormal findings (ICD-10 - Z01.419) NO PAP TEST, DUE IN 2025. ADEQUATE CALCIUM AND VIT D. WEIGHT BEARING EXERCISES. 02/18/2025 Encounter for screening mammogram for malignant neoplasm of breast (ICD-10 - Z12.31) REGULAR MAMMOGRAMS AND SBE'S WERE RECOMMENDED. 02/18/2025 Personal history of other diseases of the female genital tract (ICD-10 - Z87.42) DISCUSSED PREVIOUS AUB WITH NEGATIVE HSONO AND EMB. NO RECURRENCE OF ABNORMAL BLEEDING. 02/18/2025 Other specified counseling (ICD-10 - Z71.89) FOLIC ACID 400 MCG DAILY TO PREVENT NEURAL TUBE DEFECTS IN BABY IF SHE GETS . Plan Of Treatment Pending Test Test Name Order Date Urinalysis 05/13/2019 Urinalysis 06/14/2021 Urinalysis 09/19/2023 COMPLETE URINALYSIS 09/16/2022 THIN PREP,HPV,JAH IF HPV+ (>29YR)(DIAG) 09/13/2022 URINE CULTURE 09/16/2022 MM Digital Mammo Screening 09/19/2023 MM Digital Mammo Screening 02/18/2025 MM Digital Mammo Screening 06/14/2021 MM Digital Mammo Screening 09/13/2022 MM Digital Mammo Screening 05/24/2020 Next Appt Details Provider Name:Jessica carr, 03/06/2026 09:00:00 AM, [address], [place], [address], Insurance Providers Payer Name Payer Address Payer Phone Subscriber Number Group Number Insured Name Patient Relationship to Insured Coverage Start Date Coverage End Date [employer] [place] [address] [place] [address] [id number] KAROLINE HERNANDEZ Self - patient is the insured Medical (General) History Medical History History ICD Code Other microscopic hematuria R31.29 Other specified abnormal uterine and vag inal bleeding N93.8 Gross hematuria R31.0 Surgical History Surgery Date(Month/Year) Hospitalization History Reason Date(Month/Year) 3 Vaginal Deliveries
== END 2025-03-21 17:00 | disposition home or self-care (01) ==
LOC: HO.HMCFM 16:13
PROVIDERS: PCP Physician Assistant Medical; Visit Provider Physician Assistant Medical
DX: Z00.00 Encounter for general adult medical examination without abnormal findings (principal); I10 Essential (primary) hypertension

== ENCOUNTER → 2025-03-21 16:12 | Outpatient (BNVA) | payer BC, SELFPAY | PROVIDERS: PCP Physician Assistant Medical; Visit Provider Physician Assistant Medical | DX: Z23 Encounter for immunization (principal) | CPT/HCPCS: 90471; 90656; 90715 ==

== ENCOUNTER 2025-03-31 06:38 | Outpatient (REF) | payer BC, SELFPAY ==
[2025-03-31 07:22] LABS: Hematocrit 40.7 % (37.0-47.0); Hemoglobin 14.3 g/dl (12.0-16.0); Mean Corpuscular HGB Conc 35.1 g/dl (31.0-35.0); Mean Corpuscular Hemoglobin 32.1 pg (27.0-33.0); Mean Corpuscular Volume 91.5 fL (80.0-98.0); NRBC Abs Auto 0.000 X10*3/uL (0.0-0.012); NRBC Pct Auto 0.0 /100WBC (0.0-0.2); Platelet Count 259 X10*3/uL (160-400); Red Blood Count 4.45 X10*6/uL (4.20-5.50); White Blood Count 6.1 X10*3/uL (4.8-10.8)
[2025-03-31 08:12] LABS: Alanine Aminotransferase 14 U/L (0-31); Albumin Level 4.1 g/dL (3.5-5.0); Alkaline Phosphatase 52 U/L (39-117); Anion Gap 8 (12-20); Aspartate Amino Transferase 21 U/L (5-31); Blood Urea Nitrogen 18 mg/dL (9-16); Calcium 8.4 mg/dL (8.4-10.2); Carbon Dioxide 24 mmol/L (22-29); Chloride 110 mmol/L (96-108); Cholesterol 177 mg/dL (<200); Estimated Glomerular Filt Rate > 60; HDL Cholesterol 57 mg/dL (>40); Potassium 4.0 mmol/L (3.3-5.1); Sodium 138 mmol/L (135-145); Total Protein 7.0 g/dL (6.5-8.0); Triglycerides 50 mg/dL (<150)
== END 2025-03-31 06:39 | disposition home or self-care (01) ==
LOC: HO.LAB 06:38
PROVIDERS: PCP Physician Assistant Medical; Visit Provider Physician Assistant Medical
DX: Z13.6 Encounter for screening for cardiovascular disorders (principal); I10 Essential (primary) hypertension
CPT/HCPCS: 36415; 80053; 80061; 84443; 85027